=== PATIENT | female | born 1980 | race Caucasian/White ===

== ENCOUNTER 2020-10-03 12:36 | Emergency (ER) | payer BC, SELFPAY ==
[2020-10-03 12:53] VITALS: BP 132/95; PULSE 75; RESP 17; TEMP 36.6; O2SAT 96; BMI 46.5
--- NOTE | 2020-10-03 13:21 | ED_ITS ---
HPI - Nausea/Vomiting/Diarrhea General Chief complaint: Nausea/Vomiting/Diarrhea Stated complaint: difficulty breathing/ throwing up Time Seen by Provider: 10/03/20 13:12 Source: patient Mode of arrival: ambulatory Limitations: no limitations History of Present Illness HPI Narrative: 40-year-old female with a past medical history of anxiety, IBS, diverticulitis, GERD, marijuana use here with complaints of nausea and vomiting since last night unable to tolerate p.o. fluids. She does have some upper abdominal pain which she tells me is secondary to vomiting. No fevers, chills, urinary symptoms, diarrhea or constipation. Last menstrual cycle 5 days ago. She does smoke marijuana. Hot showers help her. Associated nausea: Yes Related Data Previous Rx's Medication Instructions Recorded fluticasone propionate 50 1 spray INTRANASAL DAILY #16 g 09/03/20 mcg/actuation nasal spray,suspension ondansetron 4 mg PO Q6H PRN #10 tab 10/03/20 Allergies Allergy/AdvReac Type Severity Reaction Status Date / Time haloperidol [HALOPERIDOL] Allergy Unknown INVOLUNTARY Unverified 12/14/19 14:41 SPASMS penicillin V Allergy Unknown Verified 10/03/19 00:00 Penicillins [PENICILLINS] Allergy Unknown HIVES Unverified 12/14/19 14:41 SEASONAL ALLERGIES Allergy Unknown RUNNY Uncoded 12/14/19 14:41 NOSE, ITCHY EYES, SNEEZING Review of Systems Review of Systems: Yes all other systems are reviewed and are negative Constitutional: Constitutional: Reports no additional constitutional complaints, Denies body ache(s), Denies chills, Denies fever(s), Denies headache(s) and Denies weakness Eyes: Eyes: Reports no additional eye complaints and Denies change in vision ENT: Reports system reviewed and no additional complaints, except as documented, Denies dizziness, Denies headache(s), Denies nasal congestion, Denies nasal discharge and Denies neck pain Cardiovascular: Cardiovascular: Reports no additional cardiovascular complaints, Denies chest pain, Denies leg edema and Denies dyspnea Respiratory: Respiratory: Reports no additional respiratory complaints, Denies cough and Denies dyspnea Gastrointestinal: Gastrointestinal: Reports no additional gastrointestinal complaints, Reports abdominal pain, Denies diarrhea, Reports nausea and Reports vomiting Genitourinary: Genitourinary: Reports no additional female genitourinary complaints and Denies urinary incontinence Musculoskeletal: Musculoskeletal: Reports no additional musculoskeletal complaints, Denies back pain, Denies arthralgias, Denies joint swelling, Denies neck pain, Denies numbness and Denies tingling Integumentary/Breasts: Skin/Breast: Reports system reviewed and no additional complaints, except as docu and Denies rash Neurologic: Reports system reviewed and no additional complaints, except as documented, Denies Abnormal speech present, Denies dizziness, Denies headache(s), Denies numbness, Denies tingling and Denies weakness PMFSH Past Medical History Attestation statement: The following information was validated with the patient. Source: old records reviewed and nursing notes reviewed Medical History Diverticulitis IBS (irritable bowel syndrome) Social History Social History Alcohol intake: unknown Smoked in Last 30 Days: Yes Use of substances other than those prescribed or required for medical reasons: Unknown Advance Directives: No Advance Directives Information Provided: No Patient : No Physical Exam Vital Signs: Vital Signs: Last Vital Signs Temp 98.7 F 10/03/20 16:14 Pulse 60 10/03/20 16:14 Resp 14 10/03/20 16:14 BP 126/76 10/03/20 16:14 Pulse Ox 99 10/03/20 16:14 Body Mass Index 46.5 Const: General: anxious Orientation/consciousness: patient oriented x3 Limitations: no limitations HENMT: Head: Yes normal to inspection Ears: hearing grossly normal bilaterally General nose exam: Normal external nose present Face and sinus: Yes normal facial exam Mouth: Normal oral and palatal mucosa present Throat: Yes posterior oropharynx normal Eyes: General: appearance normal, both eyes and all related structures Pupils: Equal, round and reactive pupils present Neck: Neck: Yes normal visual inspection Chest: Chest palpation & inspection: normal inspection of the chest Resp: Effort & Inspection: normal respiratory effort Auscultation: clear to auscultation bilaterally Cardio: Rate: regular rate Rhythm: regular rhythm Peripheral pulses: Peripheral pulses 2+ throughout GI: Other: Dry heaving in the room. No emesis noted. Very anxious Inspection: Yes normal to inspection Palpation (GI): Soft to palpation and nontender Auscultation: normal bowel sounds Back/Spine/Pelvis: Thoracic/Lumbar Spine: thoracic and lumbar spine normal to inspection Skin: General skin exam: no rashes or lesions noted Neuro: General: patient oriented x3, no focal motor deficits and normal sensation to monofilament Cranial nerves: Yes Equal, round and reactive pupils present Cognition (Neuro): normal cognition Speech: No Abnormal speech present Gait exam (Neuro): Normal gait present Motor exam (neuro): 5/5 motor strength present throughout Extrem: General: Yes normal to inspection, Yes no pedal edema and Yes no calf tenderness Course Course Course Narrative: 40-year-old female here with nausea and vomiting with upper abdominal pain since yesterday. Unable to tolerate p.o. fluids at home. Has tried taking some hot showers but continued symptoms. On arrival the patient is very anxious, dry heaving in the room. No emesis noted. No focal abdominal pain on exam. Will check labs, UA, urine . Will place PIV and give antiemetic. 1745- Labs and urine unremarkable. Patient is now tolerating p.o.. She is fee ling improved. Will discharge home with antiemetic. We discussed discontinuing marijuana. Reviewed worrisome signs and symptoms when to return to the emergency department. Comfortable discharge home. MDM - Nausea/Vomiting/Diarrhea MDM Narrative Medical decision making narrative: Cyclic vomiting, gastritis, gastroenteritis Differential Diagnosis Differential diagnosis: Likely gastroenteritis Medical Records Attestation: I reviewed the patient's medical records. Lab Data Attestation: I reviewed the patient's lab results. Result diagrams: 10/03/20 13:43 10/03/20 13:43 Labs: Lab Results 10/03/20 10/03/20 10/03/20 Range/Units 13:43 13:43 17:36 WBC 10.4 (4.8-10.8) X10*3/uL RBC 4.48 (4.20-5.50) X10*6/uL Hgb 13.0 (12.0-16.0) g/dl Hct 38.0 (37-47) % MCV 84.8 (80-98) fL MCH 29.0 (27.0-33.0) pg MCHC 34.2 (31.0-35.0) g/dl RDW 12.2 (11.0-16.0) % Plt Count 297 (160-400) X10*3/uL MPV 8.4 L (9.4-12.3) fL Immature Gran % (Auto) 0.3 (0.0-0.4) % Neut % (Auto) 86.0 H (45-73) % Lymph % (Auto) 9.8 L (20-40) % [place] % (Auto) 3.8 (2-11) % Eos % (Auto) 0.0 (0-4) % Baso % (Auto) 0.1 (0-2) % Lymph # (Auto) 1.0 L (1.2-4.9) X10*3/uL [place] # (Auto) 0.4 (0.1-1.2) X10*3/uL Eos # (Auto) 0.0 (0.0-0.4) X10*3/uL Baso # (Auto) 0.0 (0.0-0.2) X10*3/uL Abs Immat Gran (auto) 0.03 (0.00-0.03) X10*3/uL Absolute Neuts (auto) 9.0 H (2.0-8.3) X10*3/uL Absolute Nucleated RBC 0.000 (0.0-0.012) X10*3/uL Nucleated RBC % (auto) 0.0 (0.0-0.2) /100WBC Sodium 141 (135-145) mmol/L Potassium 4.0 (3.3-5.1) mmol/L Chloride 107 (96-108) mmol/L Carbon Dioxide 19 L (22-29) mmol/L Anion Gap 19 (12-20) BUN 9 (9-16) mg/dL Creatinine 0.84 (0.5-1.4) mg/dL Estim Creat Clear Calc 120.6 Estimated GFR > 60 Random Glucose 147 H (60-115) mg/dL Calcium 10.0 (8.4-10.2) mg/dL Total Bilirubin 0.5 (0.0-1.0) mg/dL Direct Bilirubin 0.2 (0.0-0.5) mg/dL AST 20 (5-31) U/L ALT 24 (0-31) U/L Alkaline Phosphatase 63 (39-117) U/L Total Protein 7.3 (6.5-8.0) g/dL Albumin 4.4 (3.5-5.0) g/dL Urine Color YELLOW Urine Appearance CLEAR Urine pH 8.0 (5.0-8.0) Ur Specific [place] 1.025 (1.005-1.025) Urine Protein NEG (NEG-TRACE) MG/DL Urine Glucose (UA) NEG (NEG) MG/DL Urine Ketones >=80 (NEG) MG/DL Urine Blood TRACE (NEG) Urine Nitrite NEG (NEG) Ur Leukocyte Esterase NEG (NEG) Urine Test (NEGATIVE) 10/03/20 Range/Units 17:36 WBC (4.8-10.8) X10*3/uL RBC (4.20-5.50) X10*6/uL Hgb (12.0-16.0) g/dl Hct (37-47) % MCV (80-98) fL MCH (27.0-33.0) pg MCHC (31.0-35.0) g/dl RDW (11.0-16.0) % Plt Count (160-400) X10*3/uL MPV (9.4-12.3) fL Immature Gran % (Auto) (0.0-0.4) % Neut % (Auto) (45-73) % Lymph % (Auto) (20-40) % [place] % (Auto) (2-11) % Eos % (Auto) (0-4) % Baso % (Auto) (0-2) % Lymph # (Auto) (1.2-4.9) X10*3/uL [place] # (Auto) (0.1-1.2) X10*3/uL Eos # (Auto) (0.0-0.4) X10*3/uL Baso # (Auto) (0.0-0.2) X10*3/uL Abs Immat Gran (auto) (0.00-0.03) X10*3/uL Absolute Neuts (auto) (2.0-8.3) X10*3/uL Absolute Nucleated RBC (0.0-0.012) X10*3/uL Nucleated RBC % (auto) (0.0-0.2) /100WBC Sodium (135-145) mmol/L Potassium (3.3-5.1) mmol/L Chloride (96-108) mmol/L Carbon Dioxide (22-29) mmol/L Anion Gap (12-20) BUN (9-16) mg/dL Creatinine (0.5-1.4) mg/dL Estim Creat Clear Calc Estimated GFR Random Glucose (60-115) mg/dL Calcium (8.4-10.2) mg/dL Total Bilirubin (0.0-1.0) mg/dL Direct Bilirubin (0.0-0.5) mg/dL AST (5-31) U/L ALT (0-31) U/L Alkaline Phosphatase (39-117) U/L Total Protein (6.5-8.0) g/dL Albumin (3.5-5.0) g/dL Urine Color Urine Appearance Urine pH (5.0-8.0) Ur Specific [place] (1.005-1.025) Urine Protein (NEG-TRACE) MG/DL Urine Glucose (UA) (NEG) MG/DL Urine Ketones (NEG) MG/DL Urine Blood (NEG) Urine Nitrite (NEG) Ur Leukocyte Esterase (NEG) Urine Test NEGATIVE (NEGATIVE) Discharge Plan Discharge Clinical Impression: Vomiting Patient Disposition: Home, Self-Care Instructions: Acute Nausea and Vomiting (ED) Prescriptions: New ondansetron 4 mg tablet,disintegrating 4 mg PO Q6H PRN (Reason: nausea and vomiting) Qty: 10 RF: 0 No Action fluticasone propionate [Flonase Allergy Relief] 50 mcg/actuation spray,suspension 1 spray intranasal DAILY Qty: 16 RF: 6 Referrals: Tracy Nevarez MD [Primary Care Provider] - 2 days Stand Alone Forms: Work/School Release
[2020-10-03] MEDS: Metoclopramide HCl 10 MG/2 ML VIAL IVPUSH (13:37)
[2020-10-03] MEDS: diphenhydrAMINE HCL 50 MG/ML VIAL 25 MG IVPUSH (13:40)
[2020-10-03] MEDS: 0.9 % Sodium Chloride 1,000 ML 999 ML IV (13:40)
[2020-10-03] MEDS: LORazepam 2 MG/ML VIAL 1 MG IVPUSH (13:41)
[2020-10-03 13:46] LABS: MANUAL DIFF FLAG NO
[2020-10-03 13:51] LABS: Basophils Percent Auto 0.1 % (0-2); Imm Gran Abs Auto 0.03 X10*3/uL (0.00-0.03); Imm Gran Pct Auto 0.3 % (0.0-0.4); Lymphocytes Percent Auto 9.8 % (20-40); Mean Corpuscular HGB Conc 34.2 g/dl (31.0-35.0); Mean Corpuscular Volume 84.8 fL (80-98); Mean Platelet Volume 8.4 fL (9.4-12.3); Monocytes Absolute Auto 0.4 X10*3/uL (0.1-1.2); Monocytes Percent Auto 3.8 % (2-11); Platelet Count 297 X10*3/uL (160-400); Red Blood Count 4.48 X10*6/uL (4.20-5.50); Red Cell Distribution Width 12.2 % (11.0-16.0); White Blood Count 10.4 X10*3/uL (4.8-10.8)
--- NOTE | 2020-10-03 14:21 | PC.NURSE ---
pt is currently asleep, respirations even and unlabored.
[2020-10-03 14:22] LABS: Alanine Aminotransferase 24 U/L (0-31); Albumin Level 4.4 g/dL (3.5-5.0); Alkaline Phosphatase 63 U/L (39-117); Anion Gap 19 (12-20); Aspartate Amino Transferase 20 U/L (5-31); Bilirubin Direct 0.2 mg/dL (0.0-0.5); Bilirubin Total 0.5 mg/dL (0.0-1.0); Blood Urea Nitrogen 9 mg/dL (9-16); Carbon Dioxide 19 mmol/L (22-29); Chloride 107 mmol/L (96-108); Creatinine Clr Calc Pharmacy 120.6; Estimated Glomerular Filt Rate > 60; Glucose Random 147 mg/dL (60-115); Sodium 141 mmol/L (135-145); Total Protein 7.3 g/dL (6.5-8.0)
[2020-10-03 16:00] VITALS: RESP 16
[2020-10-03 16:14] VITALS: BP 126/76; PULSE 60; RESP 14; TEMP 37.1; O2SAT 99
[2020-10-03 17:43] LABS: Glucose Urine UA NEG (NEG); Leukocyte Esterase Urine NEG (NEG); Nitrite Urine NEG (NEG); Specific Gravity - Urine 1.025 (1.005-1.025); Urine Blood TRACE (NEG); Urine Ketones >=80 MG/DL (NEG); Urine Protein NEG (NEG-TRACE)
[2020-10-03 17:45] LABS: Appearance Urine CLEAR; Color Urine YELLOW
[2020-10-03 17:46] LABS: UPreg QC Valid YES; Urine Pregnancy NEGATIVE (NEGATIVE)
[2020-10-03 17:57] LABS: Bacteria Urine TRACE /LPF; Mucus Urine 1+ /LPF; Squamous Epithelial Cell Urine TRACE /LPF; WBC Urine 0-2 /HPF (0-4)
[2020-10-03 18:07] LABS: Amphetamine Screen Urine Not Detected (Not Detect); Barbiturates, Urine Not Detected (Not Detect); Benzodiazepines Screen Urine Not Detected (Not Detect); Cannabinoid Screen Urine POSITIVE (Not Detect); Cocaine Screen Urine Not Detected (Not Detect); Opiate Screen Urine Not Detected (Not Detect); Phencyclidine Screen Urine Not Detected (Not Detect)
== END 2020-10-03 17:57 | disposition home or self-care (01) ==
PROVIDERS: Nurse Practitioner Family; Emergency Provider Emergency Medicine; PCP Internal Medicine
DX: R11.10 Vomiting, unspecified (principal); F12.90 Cannabis use, unspecified, uncomplicated
CPT/HCPCS: 36415; 80048; 80076; 80307; 81001; 81025; 85025; 96361; 96374; 96375; 99284; J1200; J2060; J2765

== ENCOUNTER 2020-10-04 18:12 | Emergency (ER) | payer BC, SELFPAY ==
[2020-10-04 18:26] VITALS: BP 153/81; PULSE 62; RESP 16; TEMP 36.9; O2SAT 95; BMI 46.5
--- NOTE | 2020-10-04 22:34 | ED.NAVMDI ---
HPI - Nausea/Vomiting/Diarrhea General Chief complaint: Nausea/Vomiting/Diarrhea Stated complaint: Tingling all over body, sick for a couple days Time Seen by Provider: 10/04/20 22:33 Source: patient Mode of arrival: ambulatory Limitations: no limitations History of Present Illness HPI Narrative: Patient history of anxiety smokes marijuana used to take Ativan for years which stopped by her PCP few months ago since then patient has been having anxiety attack with nausea vomiting abdominal pain was seen here on 10/02 and 10/03 for similar complaints comes back again for nausea vomiting crease anxiety and diffuse abdominal pain feels very anxious no fever chills no urinary complaints patient workup was negative yesterday Related Data Previous Rx's Medication Instructions Recorded fluticasone propionate 50 1 spray INTRANASAL DAILY #16 g 09/03/20 mcg/actuation nasal spray,suspension ondansetron 4 mg PO Q6H PRN #10 tab 10/03/20 dicyclomine 20 mg PO TID PRN #20 tab 10/05/20 lorazepam [Ativan] 1 mg PO BID PRN #20 tab 10/05/20 Allergies Allergy/AdvReac Type Severity Reaction Status Date / Time haloperidol [HALOPERIDOL] Allergy Unknown INVOLUNTARY Verified 10/04/20 18:32 SPASMS penicillin V Allergy Unknown Shakiness Verified 10/04/20 18:32 Penicillins [PENICILLINS] Allergy Unknown HIVES Verified 10/04/20 18:32 SEASONAL ALLERGIES Allergy Unknown RUNNY Uncoded 10/04/20 18:32 NOSE, ITCHY EYES, SNEEZING Review of Systems Review of Systems: Yes all other systems are reviewed and are negative PMFSH Past Medical History Medical History Diverticulitis IBS (irritable bowel syndrome) Social History Social History Alcohol intake: unknown Smoked in Last 30 Days: No Substance Use Type: Marijuana Substance Use Frequency: Daily Last Used Substance: Weeks (ago) Any prior treatment program specific to substance use: No Advance Directives: No Patient : No Physical Exam Vital Signs: Vital Signs: Last Vital Signs Temp 98.5 F 10/04/20 18:26 Pulse 50 10/04/20 23:41 Resp 16 10/04/20 23:41 BP 126/70 10/04/20 23:41 Pulse Ox 99 10/04/20 23:41 Body Mass Index 46.5 Appearance: Alert. Oriented X3. No acute distress. Anxious Eyes: PERRLA, ENT: Pharynx normal. Oral Mucosa moist Neck: Normal inspection. Neck supple. CVS: Normal heart rate and rhythm. Pulses normal. Respiratory: No respiratory distress. Equal air entry bilateral, no wheezing/rales/rhonchi Abdomen: Soft and diffuse abdominal tenderness no rebound tenderness or guarding Bowel sounds are present, no mass palpable, no CVA tenderness Skin: Skin warm and dry. Normal skin color. Normal skin turgor. Extremities: No lower extremity edema. No calf tenderness Neuro: Oriented X 3. No motor deficit. MDM - Nausea/Vomiting/Diarrhea MDM Narrative Medical decision making narrative: Patient anxiety and cannabis use likely the cause of vomiting and pain discharge patient on dicyclomine and some Ativan advised to follow-up with PCP for Medical Records Attestation: I reviewed the patient's medical records. Discharge Plan Discharge Clinical Impression: Anxiety, Cyclic vomiting syndrome Patient Disposition: Home, Self-Care Instructions: Anxiety (ED), Cyclic Vomiting Syndrome (ED) Additional Instructions: Rest at home take medication for anxiety Follow-up with your primary doctor, stop smoking marijuana Prescriptions: New lorazepam [Ativan] 1 mg tablet 1 mg PO BID PRN (Reason: anxiety) Qty: 20 RF: 0 dicyclomine 20 mg tablet 20 mg PO TID PRN (Reason: abdominal discomfort) Qty: 20 RF: 0 No Action fluticasone propionate [Flonase Allergy Relief] 50 mcg/actuation spray,suspension 1 spray intranasal DAILY Qty: 16 RF: 6 ondansetron 4 mg tablet,disintegrating 4 mg PO Q6H PRN (Reason: nausea and vomiting) Qty: 10 RF: 0
[2020-10-04 22:40] VITALS: BP 136/71; PULSE 56; RESP 20; O2SAT 100
[2020-10-04] MEDS: LORazepam 2 MG/ML VIAL IM (22:45)
[2020-10-04 23:41] VITALS: BP 126/70; PULSE 50; RESP 16; O2SAT 99
[2020-10-05] MEDS: Dicyclomine HCl 10 MG CAPSULE 20 MG PO (00:04)
== END 2020-10-05 00:09 | disposition home or self-care (01) ==
PROVIDERS: Emergency Provider Internal Medicine; PCP Internal Medicine
DX: R11.15 Cyclical vomiting syndrome unrelated to migraine (principal); F41.9 Anxiety disorder, unspecified
CPT/HCPCS: 96372; 99284; J2060

== ENCOUNTER 2020-11-28 11:24 | Outpatient (REF) | payer BC, SELFPAY ==
[2020-11-28 13:57] LABS: Hematocrit 38.1 % (37-47); Hemoglobin 12.5 g/dl (12.0-16.0); Mean Corpuscular HGB Conc 32.8 g/dl (31.0-35.0); Mean Corpuscular Hemoglobin 28.6 pg (27.0-33.0); Mean Corpuscular Volume 87.2 fL (80-98); Mean Platelet Volume 8.9 fL (9.4-12.3); Platelet Count 308 X10*3/uL (160-400); Red Blood Count 4.37 X10*6/uL (4.20-5.50); Red Cell Distribution Width 12.7 % (11.0-16.0); White Blood Count 6.7 X10*3/uL (4.8-10.8)
[2020-11-28 14:21] LABS: Alanine Aminotransferase 14 U/L (0-31); Albumin Level 3.9 g/dL (3.5-5.0); Alkaline Phosphatase 50 U/L (39-117); Anion Gap 11 (12-20); Aspartate Amino Transferase 14 U/L (5-31); Bilirubin Total 0.4 mg/dL (0.0-1.0); Blood Urea Nitrogen 9 mg/dL (9-16); Calcium 9.1 mg/dL (8.4-10.2); Carbon Dioxide 27 mmol/L (22-29); Chloride 106 mmol/L (96-108); Cholesterol 126 mg/dL; Estimated Glomerular Filt Rate > 60; Glucose Fasting 92 mg/dL (60-99); HDL Cholesterol 35 mg/dL; LDL Cholesterol Calculated 71 mg/dl; Potassium 4.2 mmol/L (3.3-5.1); Sodium 140 mmol/L (135-145); Total Protein 6.2 g/dL (6.5-8.0); Triglycerides 102 mg/dL
[2020-11-28 14:34] LABS: TSH reflex Free T4 1.89 uIU/mL (0.32-4.0)
== END 2020-11-28 11:25 | disposition home or self-care (01) ==
LOC: HO.HMGCLDS 11:24
PROVIDERS: PCP Internal Medicine; Visit Provider Internal Medicine
DX: Z00.00 Encounter for general adult medical examination without abnormal findings (principal); F41.9 Anxiety disorder, unspecified
CPT/HCPCS: 36415; 80053; 80061; 84443; 85027

== ENCOUNTER 2020-12-11 17:00 | Outpatient (RCR) | payer BC, SELFPAY ==
--- NOTE | 2020-11-14 17:56 | MHC.PT.EP ---
[facility] [place] Office [place] Office [place] Office [address] [place] [address] [phone] F: [phone] F: [phone] F: [phone] F: [phone] Physical Therapy Plan of Care Date of Evaluation: Date of Surgery: N/A Diagnosis: low back pain Assessment: pt presents to physical therapy with pain, decreased range of motion, decreased strength, impaired functional mobility, impaired postural awareness, and gait deviations. pt is a good candidate for skilled PT due to age, potential remediation of impairments, typical disease/condition progression and prognosis, comorbidities, and motivation. pt would benefit from tailored strengthening and stretching exercise program, functional training, gait training, postural re-training, neuromuscular re-education, modalities as needed for pain, equipment safety demonstration. Frequency and Duration: The patient will be seen 1x/wk for 5 wks Short Term Goals: pt will be I w/ HEP to promote self-management of condition. pt will improve B hip ABD strength by 1 MMT grade to remediate gait impairments on even ground. pt will be I w/ sit<>supine transfer using log roll technique. Snf Goals: pt will report a statistically significant improvement in self-reported outcome measure, [place], to promote return to PLOF. pt will report <4/10 low back pain w/ sit<>supine transfers. 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 Treatment Plan: Modalities to reduce pain, spasms and effusion. Manual therapy to restore motion and function. Therapeutic exercise to improve strength and flexibility. Neuromuscular re-education for posture and balance. Therapeutic activities to return to functional activities of daily living. Electronically signed by: Kamala Brown PT, DPT Please sign and return to therapist. Thank you for your referral.
--- NOTE | 2021-01-03 12:23 | MHC.PT.DC ---
[facility] [place] Office [place] Office [place] Office [address] [place] [address] [phone] F: [phone] F: [phone] F: [phone] F: [phone] Physical Therapy Discharge Report Diagnosis: low back pain Date of Surgery: N/A Date of Evaluation: 11/14/20 Date of Discharge: 01/03/21 Treatments to Date: 5 Cancellations to Date: 0 No Shows to Date: 0 Discharge Status: Improved Function Independent with HEP Discharge Summary: The patient would like today to be her last visit as she feels her back and hip pain are managed with the exercises thus far. I will keep her chart open to 2-3 weeks and if I do not hear from her I will D/C the chart at that time. Today her HEP was reviewed and she feels confident she will be able to continue them going forward. She is able to perform therapeutic exercise with no verbal cueing for mechanics. To progress her exercises she was advised to increase the hold time. Electronically signed by: Kamala Brown PT, DPT Please sign and return to therapist. Thank you for your referral.
== END 2021-01-03 12:23 | disposition home or self-care (01) ==
LOC: HO.PT 17:00
PROVIDERS: PCP Internal Medicine; Visit Provider Internal Medicine
DX: M54.5 Low back pain (principal)
CPT/HCPCS: 97110; 97161

== ENCOUNTER 2021-03-20 09:20 | Outpatient (REF) | payer BC, SELFPAY ==
--- NOTE | ~2021-03-20 | US_ITS ---
EXAMINATION: US ABDOMEN COMPLETE CLINICAL INFORMATION: Epigastric pain. COMPARISON: CT abdomen and pelvis 12/08/2017. Abdominal ultrasound 12/08/2017. TECHNIQUE: Real-time imaging of the abdominal viscera. FINDINGS: PANCREAS: Normal head and body. The tail is obscured by bowel gas. ABDOMINAL AORTA: The proximal, mid, and distal segments are normal in caliber. INFERIOR VENA CAVA: Visualized portions are normal. LIVER: The liver is normal in size. The liver contour is normal. There is diffuse increased liver parenchymal echogenicity, consistent with hepatic steatosis. No focal hepatic lesion. There is no intrahepatic biliary duct dilatation seen. GALLBLADDER: Normal. The gallbladder is physiologically distended without evidence of stones, sludge, polyps, wall thickening or pericholecystic fluid. COMMON BILE DUCT: Normal in caliber measuring 0.34 cm in diameter. RIGHT KIDNEY: Normal. No hydronephrosis. No renal calculi or focal parenchymal lesions. The kidney measures 11.3 cm in maximum dimension. LEFT KIDNEY: Normal. No hydronephrosis. No renal calculi or focal parenchymal lesions. The kidney measures 10.9 cm in maximum dimension. SPLEEN: Normal. The spleen measures 10.7 cm in maximum dimension. FREE FLUID: None. US/US abdomen complete IMPRESSION: Increased echogenicity of the hepatic parenchyma, most commonly due to hepatic steatosis. No focal lesion. No intrahepatic biliary ductal dilatation. Otherwise normal abdominal ultrasound.
[2021-03-20 09:20] LABS: MANUAL DIFF FLAG NO
[2021-03-20 10:03] LABS: Basophils Percent Auto 0.3 % (0-2); Eosinophils Absolute Auto 0.2 X10*3/uL (0.0-0.4); Hematocrit 37.6 % (37.0-47.0); Hemoglobin 12.5 g/dl (12.0-16.0); Imm Gran Abs Auto 0.02 X10*3/uL (0.00-0.03); Imm Gran Pct Auto 0.3 % (0.0-0.4); Lymphocytes Absolute Auto 2.2 X10*3/uL (1.2-4.9); Lymphocytes Percent Auto 29.5 % (20-40); Mean Corpuscular HGB Conc 33.2 g/dl (31.0-35.0); Mean Corpuscular Hemoglobin 29.4 pg (27.0-33.0); Mean Corpuscular Volume 88.5 fL (80.0-98.0); Mean Platelet Volume 8.6 fL (9.4-12.3); Monocytes Absolute Auto 0.6 X10*3/uL (0.1-1.2); Monocytes Percent Auto 8.4 % (2-11); Neutrophils Absolute Auto 4.5 x10*3/uL (2.0-8.3); Neutrophils Percent Auto 59.5 % (45-73); Platelet Count 294 X10*3/uL (160-400); Red Blood Count 4.25 X10*6/uL (4.20-5.50); Red Cell Distribution Width 12.4 % (11.0-16.0); White Blood Count 7.5 X10*3/uL (4.8-10.8)
[2021-03-20 10:31] LABS: Alanine Aminotransferase 15 U/L (0-31); Alkaline Phosphatase 62 U/L (39-117); Amylase 32 U/L (28-100); Aspartate Amino Transferase 16 U/L (5-31); Bilirubin Direct < 0.2 mg/dL (0.0-0.5); Bilirubin Total 0.4 mg/dL (0.0-1.0); Total Protein 6.9 g/dL (6.5-8.0)
== END 2021-03-20 09:21 | disposition home or self-care (01) ==
LOC: HO.US 09:20
PROVIDERS: PCP Internal Medicine; Visit Provider Internal Medicine Gastroenterology
DX: R10.13 Epigastric pain (principal)
CPT/HCPCS: 36415; 76700; 80076; 82150; 85025

== ENCOUNTER 2021-08-04 07:00 | Outpatient (RCR) | payer BC, SELFPAY | END 2021-08-04 07:59 | disposition home or self-care (01) | LOC: HO.PT 07:00 | PROVIDERS: PCP Internal Medicine; Visit Provider Obstetrics & Gynecology | DX: N81.9 Female genital prolapse, unspecified (principal) | CPT/HCPCS: 97110; 97112; 97140; 97162; 97530 ==

== ENCOUNTER 2022-01-23 11:33 | Outpatient (REF) | payer BC, SELFPAY ==
[2022-01-23 13:53] LABS: MANUAL DIFF FLAG NO
[2022-01-23 14:02] LABS: Basophils Percent Auto 0.3 % (0-2); Eosinophils Absolute Auto 0.1 X10*3/uL (0.0-0.4); Eosinophils Percent Auto 1.3 % (0-4); Hematocrit 39.5 % (37.0-47.0); Imm Gran Abs Auto 0.04 X10*3/uL (0.00-0.03); Imm Gran Pct Auto 0.5 % (0.0-0.4); Lymphocytes Absolute Auto 2.3 X10*3/uL (1.2-4.9); Lymphocytes Percent Auto 28.6 % (20-40); Mean Corpuscular HGB Conc 32.9 g/dl (31.0-35.0); Mean Corpuscular Hemoglobin 29.1 pg (27.0-33.0); Mean Corpuscular Volume 88.6 fL (80.0-98.0); Mean Platelet Volume 8.6 fL (9.4-12.3); Monocytes Absolute Auto 0.5 X10*3/uL (0.1-1.2); Monocytes Percent Auto 6.6 % (2-11); Neutrophils Percent Auto 62.7 % (45-73); Platelet Count 264 X10*3/uL (160-400); Red Blood Count 4.46 X10*6/uL (4.20-5.50); Red Cell Distribution Width 12.2 % (11.0-16.0)
[2022-01-23 14:07] LABS: Appearance Urine Clear; Color Urine Yellow; Glucose Urine UA Negative (Negative); Leukocyte Esterase Urine Negative (Negative); Nitrite Urine Negative (Negative); Specific Gravity - Urine 1.025 (1.005-1.025); Urine Blood Negative (Negative); Urine Ketones Negative (Negative); Urine Protein Negative (Neg-Trace)
[2022-01-23 14:18] LABS: RBC Urine 0-2 /HPF (0-2); WBC Urine 0-5 /HPF (0-5)
[2022-01-23 14:19] LABS: Bacteria Urine Trace (None Seen); Hyaline Casts Urine 0-2 /LPF (0-2)
[2022-01-23 14:23] LABS: Alanine Aminotransferase 14 U/L (0-31); Albumin Level 4.5 g/dL (3.5-5.0); Alkaline Phosphatase 62 U/L (39-117); Anion Gap 14 (12-20); Aspartate Amino Transferase 17 U/L (5-31); Bilirubin Total 0.4 mg/dL (0.0-1.0); Blood Urea Nitrogen 12 mg/dL (9-16); Calcium 9.6 mg/dL (8.4-10.2); Carbon Dioxide 27 mmol/L (22-29); Chloride 103 mmol/L (96-108); Cholesterol 160 mg/dL; Estimated Glomerular Filt Rate > 60; Glucose Fasting 98 mg/dL (60-99); HDL Cholesterol 49 mg/dL; Iron 66 mcg/dL (30-160); LDL Cholesterol Calculated 98 mg/dl; Percent Iron Saturation 19 % (15-50); Potassium 4.3 mmol/L (3.3-5.1); Sodium 140 mmol/L (135-145); Total Iron Binding Capacity 348 mcg/dL (228-428); Total Protein 7.2 g/dL (6.5-8.0); Triglycerides 67 mg/dL; Unsaturated Iron Binding 282 ug/dL
[2022-01-23 14:45] LABS: TSH reflex Free T4 1.71 uIU/mL (0.32-4.0)
== END 2022-01-23 11:34 | disposition home or self-care (01) ==
LOC: HO.HMGCLDS 11:33
PROVIDERS: PCP Internal Medicine; Visit Provider Internal Medicine
DX: Z00.00 Encounter for general adult medical examination without abnormal findings (principal)
CPT/HCPCS: 36415; 80053; 80061; 81001; 83540; 84443; 85025

== ENCOUNTER → 2022-02-12 12:51 | Outpatient (REF) | payer BC, SELFPAY | LOC: HO.SL 12:51 | PROVIDERS: PCP Internal Medicine; Visit Provider Internal Medicine | DX: G47.30 Sleep apnea, unspecified (principal) | CPT/HCPCS: 95806 ==

== ENCOUNTER 2022-03-09 12:26 | Emergency (ER) | payer BC, SELFPAY ==
--- NOTE | 2022-03-09 12:34 | ED.GENADULT ---
HPI - General Adult General Chief complaint: General Medical <Kate Garibay NP - Last Filed: 03/09/22 12:38> Stated complaint: kidney pain, inflamated? <Kate Garibay NP - Last Filed: 03/09/22 12:38> Time Seen by Provider: 03/09/22 14:04 <Kate Garibay NP - Last Filed: 03/09/22 12:38> Source: patient <JOHNY Mccarty - Last Filed: 03/09/22 15:21> Mode of arrival: ambulatory <JOHNY Mccarty - Last Filed: 03/09/22 15:21> Limitations: no limitations <JOHNY Mccarty - Last Filed: 03/09/22 15:21> History of Present Illness HPI narrative: Patient is a 41 year old assigned female at with a history of IBS and sleep apnea presenting to the emergency department today with right flank pain. Patient states that over the last few hours she began to have right sided flank pain. Patient denies any dizziness, lightheadedness, abdominal pain, nausea, vomiting, fever, chills, blurry vision, double vision, loss of vision, chest pain, difficulty breathing, shortness of breath, back pain, night sweats, pain with urination, increased urinary frequency, increased urinary urgency, blood in her urine or stool, syncope or a near syncopal episode, recent trauma or falls, bowel incontinence, bladder incontinence, bowel retention, bladder retention, or any other complaints at this time. <JOHNY Mccarty - Last Filed: 03/09/22 15:21> Onset (ago): hour(s) <JOHNY Mccarty - Last Filed: 03/09/22 15:21> Location: right (flank) <JOHNY Mccarty - Last Filed: 03/09/22 15:21> Severity: mild <JOHNY Mccarty - Last Filed: 03/09/22 15:21> Severity scale (1-10): 3 <JOHNY Mccarty - Last Filed: 03/09/22 15:21> Relieving factors: none <JOHNY Mccarty Last Filed: 03/09/22 15:21> Exacerbating factors: none <JOHNY Mccarty - Last Filed: 03/09/22 15:21> Associated symptoms: denies other symptoms <JOHNY Mccarty - Last Filed: 03/09/22 15:21> Treatments prior to arrival: none <JOHNY Mccarty - Last Filed: 03/09/22 15:21> Related Data Home medications: Home Medications Medication Instructions Recorded Confirmed L.acid,gasseri,plant,rham-B.animalis-cran cap PO 10/09/20 01/23/22 5 billion cell-250mg capsule (up4 Probiotics Women's) multivitamin 1 tab PO DAILY 10/09/20 01/23/22 Previous Rx's Medication Instructions Recorded fluticasone propionate 50 1 spray intranasal DAILY #16 grams 09/03/20 mcg/actuation nasal spray,suspension (Flonase Allergy Relief) ondansetron 4 mg disintegrating 4 mg PO Q6H PRN nausea and 10/03/20 tablet vomiting #10 tabs dicyclomine 20 mg tablet 20 mg PO TID PRN abdominal 10/05/20 discomfort #20 tabs escitalopram oxalate 20 mg tablet 20 mg PO DAILY #90 tabs 12/10/21 buspirone 5 mg tablet 5 mg PO BID #180 tabs 01/13/22 CPAP (CPAP Machine/Device) #1 ea 03/05/22 <Kate Garibay NP - Last Filed: 03/09/22 12:38> Allergies/adverse reactions: Allergies Allergy/AdvReac Type Severity Reaction Status Date / Time haloperidol [HALOPERIDOL] Allergy Unknown INVOLUNTARY Verified 03/09/22 12:34 SPASMS penicillin V Allergy Unknown Shakiness Verified 03/09/22 12:34 Penicillins [PENICILLINS] Allergy Unknown HIVES Verified 03/09/22 12:34 SEASONAL ALLERGIES Allergy Unknown RUNNY Uncoded 01/23/22 11:09 NOSE, ITCHY EYES, SNEEZING <Kate Garibay NP - Last Filed: 03/09/22 12:38> Review of Systems Constitutional: Constitutional: Reports no additional constitutional complaints, Denies chills, Denies fever(s) and Denies night sweats <JOHNY Mccarty - Last Filed: 03/09/22 15:21> Eyes: Eyes: Reports no additional eye complaints, Denies blurry vision, Denies change in vision, Denies diplopia, Denies eye discharge, Denies loss of vision and Denies eye pain <JOHNY Mccarty - Last Filed: 03/09/22 15:21> ENT: Denies dizziness <JOHNY Mccarty - Last Filed: 03/09/22 15:21> Cardiovascular: Cardiovascular: Reports no additional cardiovascular complaints, Denies chest pain, Denies lightheadedness, Denies Loss of Consciousness and Denies dyspnea <JOHNY Mccarty - Last Filed: 03/09/22 15:21> Respiratory: Respiratory: Reports no additional respiratory complaints and Denies dyspnea <JOHNY Mccarty - Last Filed: 03/09/22 15:21> Gastrointestinal: Gastrointestinal: Reports no additional gastrointestinal complaints, Denies abdominal pain, Denies melena, Denies hematochezia, Denies change in bowel habits and Denies change in stool character <JOHNY Mccarty - Last Filed: 03/09/22 15:21> Genitourinary: Genitourinary: Denies hematuria, Denies urinary frequency, Denies dysuria, Reports flank pain, Denies urinary incontinence, Denies urinary hesitancy and Denies urinary urgency <JOHNY Mccarty - Last Filed: 03/09/22 15:21> Musculoskeletal: Musculoskeletal: Reports no additional musculoskeletal complaints, Denies numbness and Denies tingling <JOHNY Mccarty - Last Filed: 03/09/22 15:21> Neurologic: Denies dizziness, Denies loss of vision, Denies numbness and Denies tingling <JOHNY Mccarty - Last Filed: 03/09/22 15:21> Psychiatric: Psychiatric: Reports no additional psychiatric complaints <JOHNY Mccarty - Last Filed: 03/09/22 15:21> Endocrine: Endocrine: Reports no additional endocrine complaints <JOHNY Mccarty - Last Filed: 03/09/22 15:21> Hematologic/Lymphatic: Hematologic/Lymphatic: Reports no additional hematologic/lymphatic complaints <JOHNY Mccarty - Last Filed: 03/09/22 15:21> Allergic/Immunologic: Allergic/Immunologic: Reports no additional allergic/immunologic complaints <JOHNY Mccarty - Last Filed: 03/09/22 15:21> [facility] Past Medical History Attestation statement: The following information was validated with the patient. <JOHNY Mccarty - Last Filed: 03/09/22 15:21> Source: old records reviewed and nursing notes reviewed <JOHNY Mccarty - Last Filed: 03/09/22 15:21> Medical History: Medical History Anxiety Chronic lower back pain Diverticulitis IBS (irritable bowel syndrome) <Kate Garibay NP - Last Filed: 03/09/22 12:38> Surgical History: Surgical History H/O colonoscopy <Kate Garibay NP - Last Filed: 03/09/22 12:38> Family History Family History: Family History Father No problems noted. Mother Hypertension Sister Mental health disorder <aKte Garibay NP - Last Filed: 03/09/22 12:38> Social History Social History: Social History Housing: House Alcohol intake: unknown Patient Tobacco Use Status: Never used Tobacco e-Cigarette/Vaping Use: Never Used Second Hand Smoke Exposure: No Substance Use Type: Marijuana Advance Directives: No Advance Directives Information Provided: Yes service: No Current occupational status: employed Cognitive needs: No Hearing needs: No Vision needs: Yes <Kate Garibay NP - Last Filed: 03/09/22 12:38> Physical Exam ED Vital Signs: Vital Signs - 24 hr 03/09/22 12:35 Temperature 98.3 F Pulse Rate 77 Respiratory Rate 18 Blood Pressure 147/98 H Pulse Oximetry 97 Oxygen Delivery Method Room Air BMI result Body Mass Index 45.7 <Kate Garibay NP - Last Filed: 03/09/22 12:38> Vital Signs - 24 hr 03/09/22 12:35 Temperature 98.3 F Pulse Rate 77 Respiratory Rate 18 Blood Pressure 147/98 H Pulse Oximetry 97 Oxygen Delivery Method Room Air BMI result Body Mass Index 45.7 <Makayla Hancock, PA - Last Filed: 03/09/22 15:21> Const General: cooperative, no acute distress, alert and awake <Makayla Ojedacarlos ID - Last Filed: 03/09/22 15:21> Nutritional Appearance: well nourished <Makayla Hancock PA - Last Filed: 03/09/22 15:21> Orientation/consciousness: patient oriented x3 <Makaylasuzi Ojedacarlos ID - Last Filed: 03/09/22 15:21> Limitations: no limitations <Makayla Ojedacarlos ID - Last Filed: 03/09/22 15:21> HENMT Head: Yes normal to inspection and Yes atraumatic <Makayla Ojedacarlos ID - Last Filed: 03/09/22 15:21> Ears: hearing grossly normal bilaterally and external ears normal <Makayla Ojedacarlos ID - Last Filed: 03/09/22 15:21> General nose exam: Normal external nose present, no nasal discharge noted and no epistaxis <Makaylasuzi Ojedacarlos ID - Last Filed: 03/09/22 15:21> Face and sinus: Yes normal facial exam, No abrasion and No laceration <Makayla Ojedacarlos ID - Last Filed: 03/09/22 15:21> Mouth: Normal oral and palatal mucosa present, no drooling and no muffled voice <Makayla Ojedacarlos ID - Last Filed: 03/09/22 15:21> Eyes General: appearance normal, both eyes and all related structures <Makaylasuzi Ojedacarlos ID - Last Filed: 03/09/22 15:21> Periorbital: periorbital findings normal <Makayal Ojedacarlos ID - Last Filed: 03/09/22 15:21> Eyelids: Yes eyelids normal <Makayla Ojedacarlos ID - Last Filed: 03/09/22 15:21> Conjunctivae: conjunctivae normal <Makayla Santi ID - Last Filed: 03/09/22 15:21> Pupils: Equal, round and reactive pupils present <Makayla Santi PA - Last Filed: 03/09/22 15:21> EOM: EOMs intact bilaterally <Makayla Hancock ID - Last Filed: 03/09/22 15:21> Neck Neck: Yes normal visual inspection, Yes full ROM and Yes no lymphadenopathy <Makayla Hancock ID - Last Filed: 03/09/22 15:21> Chest Chest palpation & inspection: normal inspection of the chest <Makayla Hancock PA - Last Filed: 03/09/22 15:21> Resp Effort & Inspection: normal respiratory effort and able to speak in complete sentences <Makayla Hancock ID - Last Filed: 03/09/22 15:21> Auscultation: clear to auscultation bilaterally <Makayla Hancock PA - Last Filed: 03/09/22 15:21> Cardio Rate: regular rate <Makayla Hancock ID - Last Filed: 03/09/22 15:21> Rhythm: regular rhythm <Makayla Hancock ID - Last Filed: 03/09/22 15:21> GI Inspection: Yes normal to inspection <Makayla Hancock ID - Last Filed: 03/09/22 15:21> Palpation (GI): Soft to palpation, not firm, nontender, no guarding and not rigid <Makayla Hancock ID - Last Filed: 03/09/22 15:21> General: Yes no CVA tenderness <Makayla Hancock PA - Last Filed: 03/09/22 15:21> Back/Spine/Pelvis Back: no CVA tenderness <Makayla Hancock PA - Last Filed: 03/09/22 15:21> Neuro General: patient oriented x3 and moves all extremities <Makayla Hancock ID - Last Filed: 03/09/22 15:21> Cranial nerves: Yes Equal, round and reactive pupils present <Makayla Hancock PA - Last Filed: 03/09/22 15:21> Cognition (Neuro): normal cognition <Makayla Hancock JOHNY - Last Filed: 03/09/22 15:21> Motor exam (neuro): 5/5 motor strength present throughout <Makayla Hancock PA - Last Filed: 03/09/22 15:21> Sensory Exam: Normal double simultaneous stimulation for sensation <Makayla Hancock PA - Last Filed: 03/09/22 15:21> Coordination: [id number] test normal <Makayla Hancock ID - Last Filed: 03/09/22 15:21> Extrem General: Yes normal to inspection, Yes full ROM and Yes capillary refill normal <JOHNY Mccarty - Last Filed: 03/09/22 15:21> Psych Appearance: grossly normal <JOHNY Mccarty - Last Filed: 03/09/22 15:21> Mental Status: mental status grossly normal <JOHNY Mccarty - Last Filed: 03/09/22 15:21> Affect: normal affect <JOHNY Mccarty - Last Filed: 03/09/22 15:21> Attitude: cooperative <JOHNY Mccarty - Last Filed: 03/09/22 15:21> Thought process: Normal thought process present <JOHNY Mccarty - Last Filed: 03/09/22 15:21> Thought content: Normal thought content present <JOHNY Mccarty - Last Filed: 03/09/22 15:21> Insight: Good insight present (Psych) <JOHNY Mccarty - Last Filed: 03/09/22 15:21> Course Course Course Narrative: This is a rapid medical exam. Deferred additional HPI, ROS and PE to primary provider. 41yo female with history of JAIR, anxiety, IBS, chronic lower back pain here with complaints of sudden onset right flank pain, no radiation of pain/urinary symptoms/fevers/chills/nausea/vomiting/diarrhea. 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 Will check labs, UA, COVID screen. VSS <Kate Garibay NP - Last Filed: 03/09/22 12:38> Medications Administered Discontinued Medications Generic Name Dose Route Start Last Admin Trade Name Freq PRN Reason Stop Dose Admin Acetaminophen 975 mg 03/09/22 12:37 03/09/22 14:16 Acetaminophen 325 Mg Tablet PO 03/09/22 12:38 975 mg ONCE ONE Administration Ketorolac Tromethamine 15 mg 03/09/22 14:57 03/09/22 15:03 Ketorolac Tromethamine 15 Mg/Ml Vial IM 03/09/22 14:58 15 mg ONCE ONE Administration <Kate Garibay NP - Last Filed: 03/09/22 12:38> Medications Administered Discontinued Medications Generic Name Dose Route Start Last Admin Trade Name Freq PRN Reason Stop Dose Admin Acetaminophen 975 mg 03/09/22 12:37 03/09/22 14:16 Acetaminophen 325 Mg Tablet PO 03/09/22 12:38 975 mg ONCE ONE Administration Ketorolac Tromethamine 15 mg 03/09/22 14:57 03/09/22 15:03 Ketorolac Tromethamine 15 Mg/Ml Vial IM 03/09/22 14:58 15 mg ONCE ONE Administration <JOHNY Mccarty - Last Filed: 03/09/22 15:21> Medical Decision Making Medical Decision Making [facility] Narrative: Patient is a 41 year old assigned female at with a history of IBS and sleep apnea presenting to the emergency department today with right flank pain. Patient's physical exam was unremarkable. Patient's blood work was unremarkable. Patient's urine showed no acute process. I explained my physical exam findings as well as all test results to the patient. I answered all questions asked by the patient. Patient received IM Toradol which she stated helped her pain significantly. I stressed the importance of the patient taking her medication as prescribed. I stressed the importance of the patient following up with her primary care provider. I stressed the importance of the patient returning to the emergency department immediately if her symptoms were to worsen or if she were to develop any dizziness, shortness of breath, difficulty breathing, chest pain, blurry vision, loss of vision, nausea, vomiting, abdominal pain, fever, chills, back pain, or any other complaints. Patient verbalized agreement and understanding with this treatment plan and discharge. <JOHNY Mccarty - Last Filed: 03/09/22 15:21> Differential Diagnosis Differential Diagnoses: The differential diagnosis associated with the presentation includes <JOHNY Mccarty - Last Filed: 03/09/22 15:21> kidney stone, flank pain <JOHNY Mccarty - Last Filed: 03/09/22 15:21> Lab Data [facility] Lab Attestation statement: I reviewed the patient's lab results. <JOHNY Mccarty - Last Filed: 03/09/22 15:21> Result Diagrams: : 03/09/22 13:14 03/09/22 13:14 <Kate Garibay NP - Last Filed: 03/09/22 12:38> Labs: Lab Results 03/09/22 03/09/22 03/09/22 Range/Units 13:14 13:14 13:14 WBC 8.5 (4.8-10.8) X10*3/uL RBC 4.38 (4.20-5.50) X10*6/uL Hgb 12.8 (12.0-16.0) g/dl Hct 37.9 (37.0-47.0) % MCV 86.5 (80.0-98.0) fL MCH 29.2 (27.0-33.0) pg MCHC 33.8 (31.0-35.0) g/dl RDW 12.0 (11.0-16.0) % Plt Count 261 (160-400) X10*3/uL MPV 8.2 L (9.4-12.3) fL Immature Gran % (Auto) 0.5 H (0.0-0.4) % Neut % (Auto) 60.2 (45-73) % Lymph % (Auto) 29.3 (20-40) % [place]s % (Auto) 7.3 (2-11) % Eos % (Auto) 2.5 (0-4) % Baso % (Auto) 0.2 (0-2) % Lymph # (Auto) 2.5 (1.2-4.9) X10*3/uL [place] # (Auto) 0.6 (0.1-1.2) X10*3/uL Eos # (Auto) 0.2 (0.0-0.4) X10*3/uL Baso # (Auto) 0.0 (0.0-0.2) X10*3/uL Abs Immat Gran (auto) 0.04 H (0.00-0.03) X10*3/uL Absolute Neuts (auto) 5.1 (2.0-8.3) x10*3/uL Absolute Nucleated RBC 0.000 (0.0-0.012) X10*3/uL Nucleated RBC % (auto) 0.0 (0.0-0.2) /100WBC Sodium 138 (135-145) mmol/L Potassium 4.0 (3.3-5.1) mmol/L Chloride 104 (96-108) mmol/L Carbon Dioxide 28 (22-29) mmol/L Anion Gap 10 L (12-20) BUN 11 (9-16) mg/dL Creatinine 0.70 (0.5-1.4) mg/dL Estim Creat Clear Calc 141.8 Estimated GFR > 60 Random Glucose 115 (60-115) mg/dL Calcium 9.4 (8.4-10.2) mg/dL Total Bilirubin 0.3 (0.0-1.0) mg/dL Direct Bilirubin < 0.2 (0.0-0.5) mg/dL AST 15 (5-31) U/L ALT 17 (0-31) U/L Alkaline Phosphatase 60 (39-117) U/L Total Protein 6.7 (6.5-8.0) g/dL Albumin 4.2 (3.5-5.0) g/dL Lipase 13 (8-78) U/L Urine Color Urine Appearance Urine pH (5.0-9.0) Ur Specific [place] (1.005-1.025) Urine Protein (Neg-Trace) mg/dL Urine Glucose (UA) (Negative) mg/dL Urine Ketones (Negative) mg/dL Urine Blood (Negative) Urine Nitrite (Negative) Ur Leukocyte Esterase (Negative) Urine Test (NEGATIVE) COVID-19 (CARMEN) Negative (Negative) COVID-19 Clin Com See Note 03/09/22 03/09/22 Range/Units 14:46 14:46 WBC (4.8-10.8) X10*3/uL RBC (4.20-5.50) X10*6/uL Hgb (12.0-16.0) g/dl Hct (37.0-47.0) % MCV (80.0-98.0) fL MCH (27.0-33.0) pg MCHC (31.0-35.0) g/dl RDW (11.0-16.0) % Plt Count (160-400) X10*3/uL MPV (9.4-12.3) fL Immature Gran % (Auto) (0.0-0.4) % Neut % (Auto) (45-73) % Lymph % (Auto) (20-40) % [place] % (Auto) (2-11) % Eos % (Auto) (0-4) % Baso % (Auto) (0-2) % Lymph # (Auto) (1.2-4.9) X10*3/uL [place] # (Auto) (0.1-1.2) X10*3/uL Eos # (Auto) (0.0-0.4) X10*3/uL Baso # (Auto) (0.0-0.2) X10*3/uL Abs Immat Gran (auto) (0.00-0.03) X10*3/uL Absolute Neuts (auto) (2.0-8.3) x10*3/uL Absolute Nucleated RBC (0.0-0.012) X10*3/uL Nucleated RBC % (auto) (0.0-0.2) /100WBC Sodium (135-145) mmol/L Potassium (3.3-5.1) mmol/L Chloride (96-108) mmol/L Carbon Dioxide (22-29) mmol/L Anion Gap (12-20) BUN (9-16) mg/dL Creatinine (0.5-1.4) mg/dL Estim Creat Clear Calc Estimated GFR Random Glucose (60-115) mg/dL Calcium (8.4-10.2) mg/dL Total Bilirubin (0.0-1.0) mg/dL Direct Bilirubin (0.0-0.5) mg/dL AST (5-31) U/L ALT (0-31) U/L Alkaline Phosphatase (39-117) U/L Total Protein (6.5-8.0) g/dL Albumin (3.5-5.0) g/dL Lipase (8-78) U/L Urine Color Yellow Urine Appearance Cloudy Urine pH 8.0 (5.0-9.0) Ur Specific [place] 1.025 (1.005-1.025) Urine Protein Negative (Neg-Trace) mg/dL Urine Glucose (UA) Negative (Negative) mg/dL Urine Ketones Negative (Negative) mg/dL Urine Blood Negative (Negative) Urine Nitrite Negative (Negative) Ur Leukocyte Esterase Negative (Negative) Urine Test NEGATIVE (NEGATIVE) COVID-19 (CARMEN) (Negative) COVID-19 Clin Com <Kate Garibay, L[employer] WATCHER - Last Filed: 03/09/22 12:38> Lab Results 03/09/22 03/09/22 03/09/22 Range/Units 13:14 13:14 13:14 WBC 8.5 (4.8-10.8) X10*3/uL RBC 4.38 (4.20-5.50) X10*6/uL Hgb 12.8 (12.0-16.0) g/dl Hct 37.9 (37.0-47.0) % MCV 86.5 (80.0-98.0) fL MCH 29.2 (27.0-33.0) pg MCHC 33.8 (31.0-35.0) g/dl RDW 12.0 (11.0-16.0) % Plt Count 261 (160-400) X10*3/uL MPV 8.2 L (9.4-12.3) fL Immature Gran % (Auto) 0.5 H (0.0-0.4) % Neut % (Auto) 60.2 (45-73) % Lymph % (Auto) 29.3 (20-40) % [place] % (Auto) 7.3 (2-11) % Eos % (Auto) 2.5 (0-4) % Baso % (Auto) 0.2 (0-2) % Lymph # (Auto) 2.5 (1.2-4.9) X10*3/uL [place] # (Auto) 0.6 (0.1-1.2) X10*3/uL Eos # (Auto) 0.2 (0.0-0.4) X10*3/uL Baso # (Auto) 0.0 (0.0-0.2) X10*3/uL Abs Immat Gran (auto) 0.04 H (0.00-0.03) X10*3/uL Absolute Neuts (auto) 5.1 (2.0-8.3) x10*3/uL Absolute Nucleated RBC 0.000 (0.0-0.012) X10*3/uL Nucleated RBC % (auto) 0.0 (0.0-0.2) /100WBC Sodium 138 (135-145) mmol/L Potassium 4.0 (3.3-5.1) mmol/L Chloride 104 (96-108) mmol/L Carbon Dioxide 28 (22-29) mmol/L Anion Gap 10 L (12-20) BUN 11 (9-16) mg/dL Creatinine 0.70 (0.5-1.4) mg/dL Estim Creat Clear Calc 141.8 Estimated GFR > 60 Random Glucose 115 (60-115) mg/dL Calcium 9.4 (8.4-10.2) mg/dL Total Bilirubin 0.3 (0.0-1.0) mg/dL Direct Bilirubin < 0.2 (0.0-0.5) mg/dL AST 15 (5-31) U/L ALT 17 (0-31) U/L Alkaline Phosphatase 60 (39-117) U/L Total Protein 6.7 (6.5-8.0) g/dL Albumin 4.2 (3.5-5.0) g/dL Lipase 13 (8-78) U/L Urine Color Urine Appearance Urine pH (5.0-9.0) Ur Specific [place] (1.005-1.025) Urine Protein (Neg-Trace) mg/dL Urine Glucose (UA) (Negative) mg/dL Urine Ketones (Negative) mg/dL Urine Blood (Negative) Urine Nitrite (Negative) Ur Leukocyte Esterase (Negative) Urine Test (NEGATIVE) COVID-19 (CARMEN) Negative (Negative) COVID-19 Clin Com See Note 03/09/22 03/09/22 Range/Units 14:46 14:46 WBC (4.8-10.8) X10*3/uL RBC (4.20-5.50) X10*6/uL Hgb (12.0-16.0) g/dl Hct (37.0-47.0) % MCV (80.0-98.0) fL MCH (27.0-33.0) pg MCHC (31.0-35.0) g/dl RDW (11.0-16.0) % Plt Count (160-400) X10*3/uL MPV (9.4-12.3) fL Immature Gran % (Auto) (0.0-0.4) % Neut % (Auto) (45-73) % Lymph % (Auto) (20-40) % [place] % (Auto) (2-11) % Eos % (Auto) (0-4) % Baso % (Auto) (0-2) % Lymph # (Auto) (1.2-4.9) X10*3/uL [place] # (Auto) (0.1-1.2) X10*3/uL Eos # (Auto) (0.0-0.4) X10*3/uL Baso # (Auto) (0.0-0.2) X10*3/uL Abs Immat Gran (auto) (0.00-0.03) X10*3/uL Absolute Neuts (auto) (2.0-8.3) x10*3/uL Absolute Nucleated RBC (0.0-0.012) X10*3/uL Nucleated RBC % (auto) (0.0-0.2) /100WBC Sodium (135-145) mmol/L Potassium (3.3-5.1) mmol/L Chloride (96-108) mmol/L Carbon Dioxide (22-29) mmol/L Anion Gap (12-20) BUN (9-16) mg/dL Creatinine (0.5-1.4) mg/dL Estim Creat Clear Calc Estimated GFR Random Glucose (60-115) mg/dL Calcium (8.4-10.2) mg/dL Total Bilirubin (0.0-1.0) mg/dL Direct Bilirubin (0.0-0.5) mg/dL AST (5-31) U/L ALT (0-31) U/L Alkaline Phosphatase (39-117) U/L Total Protein (6.5-8.0) g/dL Albumin (3.5-5.0) g/dL Lipase (8-78) U/L Urine Color Yellow Urine Appearance Cloudy Urine pH 8.0 (5.0-9.0) Ur Specific [place] 1.025 (1.005-1.025) Urine Protein Negative (Neg-Trace) mg/dL Urine Glucose (UA) Negative (Negative) mg/dL Urine Ketones Negative (Negative) mg/dL Urine Blood Negative (Negative) Urine Nitrite Negative (Negative) Ur Leukocyte Esterase Negative (Negative) Urine Test NEGATIVE (NEGATIVE) COVID-19 (CARMEN) (Negative) COVID-19 Clin Com <JOHNY Mccarty - Last Filed: 03/09/22 15:21> Discharge Plan Discharge Clinical Impression: Acute flank pain <Kate Garibay NP - Last Filed: 03/09/22 12:38> Patient Disposition: Home, Self-Care <Kate Garibay NP - Last Filed: 03/09/22 12:38> Instructions: Flank Pain (ED) <Kate Garibay NP - Last Filed: 03/09/22 12:38> Additional Instructions: Follow up with your primary care provider. Return to the emergency department immediately if your symptoms worsen or if you develop any dizziness, shortness of breath, difficulty breathing, chest pain, blurry vision, loss of vision, nausea, vomiting, abdominal pain, fever, chills, back pain, or any other complaints. <Kate Garibay NP - Last Filed: 03/09/22 12:38> Prescriptions: No Action fluticasone propionate [Flonase Allergy Relief] 50 mcg/actuation spray,suspension 1 spray intranasal DAILY Qty: 16 6RF Rx Instructions: administer into each nostril escitalopram oxalate 20 mg tablet 20 mg PO DAILY Qty: 90 3RF buspirone 5 mg tablet 5 mg PO BID Qty: 180 3RF (DME) CPAP Machine/Device Device See Rx Instructions .Route Qty: 1 0RF Rx Instructions: autoPAP 6-16 cm PRESSURE, CPAP and supplies dicyclomine 20 mg tablet 20 mg PO TID PRN (Reason: abdominal discomfort) Qty: 20 0RF ondansetron 4 mg tablet,disintegrating 4 mg PO Q6H PRN (Reason: nausea and vomiting) Qty: 10 0RF multivitamin Tablet 1 tab PO DAILY up4 Probiotics Women's 5 billion cell- 250 mg capsule PO <Kate Garibay NP - Last Filed: 03/09/22 12:38> Referrals: Tracy Nevarez MD [Primary Care Provider] - <Kate Garibay NP - Last Filed: 03/09/22 12:38> Stand Alone Forms: Work/School Release <Kate Garibay NP - Last Filed: 03/09/22 12:38> Print Language: Telugu <Kate Garibay NP - Last Filed: 03/09/22 12:38>
[2022-03-09 12:35] VITALS: BP 147/98; PULSE 77; RESP 18; TEMP 36.8; O2SAT 97; BMI 45.7
[2022-03-09 13:23] LABS: MANUAL DIFF FLAG NO
[2022-03-09 13:28] LABS: Basophils Percent Auto 0.2 % (0-2); Eosinophils Absolute Auto 0.2 X10*3/uL (0.0-0.4); Eosinophils Percent Auto 2.5 % (0-4); Hematocrit 37.9 % (37.0-47.0); Hemoglobin 12.8 g/dl (12.0-16.0); Imm Gran Abs Auto 0.04 X10*3/uL (0.00-0.03); Imm Gran Pct Auto 0.5 % (0.0-0.4); Lymphocytes Absolute Auto 2.5 X10*3/uL (1.2-4.9); Lymphocytes Percent Auto 29.3 % (20-40); Mean Corpuscular HGB Conc 33.8 g/dl (31.0-35.0); Mean Corpuscular Hemoglobin 29.2 pg (27.0-33.0); Mean Corpuscular Volume 86.5 fL (80.0-98.0); Mean Platelet Volume 8.2 fL (9.4-12.3); Monocytes Absolute Auto 0.6 X10*3/uL (0.1-1.2); Monocytes Percent Auto 7.3 % (2-11); Neutrophils Absolute Auto 5.1 x10*3/uL (2.0-8.3); Neutrophils Percent Auto 60.2 % (45-73); Platelet Count 261 X10*3/uL (160-400); Red Blood Count 4.38 X10*6/uL (4.20-5.50); White Blood Count 8.5 X10*3/uL (4.8-10.8)
[2022-03-09 13:39] LABS: COVID-19 Test Negative (Negative); IDNOW Serial# 16C4AD1C
[2022-03-09 13:41] LABS: Alanine Aminotransferase 17 U/L (0-31); Albumin Level 4.2 g/dL (3.5-5.0); Alkaline Phosphatase 60 U/L (39-117); Anion Gap 10 (12-20); Aspartate Amino Transferase 15 U/L (5-31); Bilirubin Direct < 0.2 mg/dL (0.0-0.5); Bilirubin Total 0.3 mg/dL (0.0-1.0); Blood Urea Nitrogen 11 mg/dL (9-16); Calcium 9.4 mg/dL (8.4-10.2); Carbon Dioxide 28 mmol/L (22-29); Chloride 104 mmol/L (96-108); Creatinine Clr Calc Pharmacy 141.8; Estimated Glomerular Filt Rate > 60; Glucose Random 115 mg/dL (60-115); Lipase 13 U/L (8-78); Sodium 138 mmol/L (135-145); Total Protein 6.7 g/dL (6.5-8.0)
[2022-03-09] MEDS: Acetaminophen 325 MG TABLET 975 MG PO (14:16)
[2022-03-09 15:01] LABS: Appearance Urine Cloudy; Color Urine Yellow; Glucose Urine UA Negative (Negative); Leukocyte Esterase Urine Negative (Negative); Nitrite Urine Negative (Negative); Specific Gravity - Urine 1.025 (1.005-1.025); Urine Blood Negative (Negative); Urine Ketones Negative (Negative); Urine Protein Negative (Neg-Trace)
[2022-03-09 15:02] LABS: UPreg QC Valid YES; Urine Pregnancy NEGATIVE (NEGATIVE)
[2022-03-09] MEDS: Ketorolac Tromethamine 15 MG/ML VIAL IM (15:03)
== END 2022-03-09 15:22 | disposition home or self-care (01) ==
PROVIDERS: Nurse Practitioner Family; Emergency Provider Emergency Medicine; PCP Internal Medicine
DX: R10.9 Unspecified abdominal pain (principal); Z20.822 Contact with and (suspected) exposure to COVID-19
CPT/HCPCS: 36415; 80048; 80076; 81003; 81025; 83690; 85025; 87635; 96372; 99283; 99284; J1885

== ENCOUNTER 2024-11-16 05:18 | Emergency (ER) | payer BC, SELFPAY ==
--- OUTSIDE RECORDS SUMMARY | 2024-08-30 05:00 | XMS_ITS ---
Author Organization [facility] Address [address] [facility] [address] [place] [id number] Care Team Providers Care Breaker Off Name Role Phone Jozef Gonzales MD Primary Care Provider Oral Berkowitz Jr, Low Uribe [phone] REASON FOR VISIT gerd Encounters Encounter Location Date Provider Diagnosis [facility] [address] [place] [address] [place] [id number] 08/30/2024 Low Berkowitz Jr Plan Of Treatment Next Appt Details Provider Name:Low sánchez Jr, 12/04/2024 11:20:00 AM, [address] [place] [address], Suite [facility], [place], [address], Progress Notes * BRIAN BLACK FDOB: [birth year] (44 yo F)Acc No.[id number]:08/30/2024 Progress Notes Patient: BRIAN ALVAREZ Provider: Nicole Berkowitz MD :1980 A ge:44 Y S ex:Female Date:08/30/2024 Address:[address] [address] [id number] Pcp:Jozef Gonzales MD Subjective: * Chief Complaints: * 1 . Gerd. * Medical History: Objective: * Vitals: Assessment: Plan: * Treatment: * * The named appointment provid er may or may not be the originator of this progress note, and it is not deemed complete until electronically signed by the appointment provider. Sign off status: Pending * Provider: Nicole Berkowitz MD Date: 0 08/30/2024 Generated for Margot kessler/Nicho/Gianfranco on: 0 11/16/2024 06:17 AM EDT
--- NOTE | ~2024-11-16 | CT_ITS ---
CLINICAL HISTORY: LLQ pain CT abdomen and pelvis with contrast Comparison: None provided Findings: No consolidation or effusion. The gallbladder and solid organs are within normal limits. There is moderate left hydroureteronephrosis with periureteral edema secondary to a 3.8 mm distal ureteral calculus No bowel obstruction, pneumoperitoneum, or pneumatosis. There are diverticula in the descending and sigmoid colon without imaging evidence of diverticulitis. Pelvic contents unremarkable. Normal appendix. No acute fracture. IMPRESSION: Moderate left hydroureteronephrosis secondary to a distal ureteral 3.8 mm calculus. This document has been electronically signed by: Go Abebe MD on 11/16/2024 07:57:13
[2024-11-16 05:20] VITALS: BP 125/66; PULSE 73; RESP 30; O2SAT 98; BMI 44.6
--- NOTE | 2024-11-16 05:23 | ECG_ITS ---
Test Reason : ABD PAIN Blood Pressure : */* mmHG Vent. Rate : 60 BPM Atrial Rate : 60 BPM P-R Int : 122 ms QRS Dur : 84 ms QT Int : 410 ms P-R-T Axes : -13 45 49 degrees QTcB Int : 410 ms Normal sinus rhythm with sinus arrhythmia Normal ECG When compared with ECG of 03-Apr-2014 19:28, No significant change was found Referred By: Elizabeth Harris Electronically Signed By: ABENA LIN MD
[2024-11-16 05:42] LABS: MANUAL DIFF FLAG NO
[2024-11-16 05:43] LABS: Hematocrit 37.4 % (37.0-47.0); Hemoglobin 13.3 g/dl (12.0-16.0); Imm Gran Abs Auto 0.03 X10*3/uL (0.00-0.03); Imm Gran Pct Auto 0.3 % (0.0-0.4); Lymphocytes Absolute Auto 2.7 X10*3/uL (1.2-4.9); Mean Corpuscular HGB Conc 35.6 g/dl (31.0-35.0); Mean Corpuscular Hemoglobin 30.0 pg (27.0-33.0); Mean Corpuscular Volume 84.2 fL (80.0-98.0); NRBC Abs Auto 0.000 X10*3/uL (0.0-0.012); NRBC Pct Auto 0.0 /100WBC (0.0-0.2); Platelet Count 299 X10*3/uL (160-400); Red Blood Count 4.44 X10*6/uL (4.20-5.50); White Blood Count 11.2 X10*3/uL (4.8-10.8)
[2024-11-16 05:49] VITALS: RESP 20
--- NOTE | 2024-11-16 05:49 | ED_ITS ---
HPI - Abdominal Pain General Chief Complaint: Abdominal Pain Stated Complaint: left abdominal pain +vomiting Time Seen by Provider: 11/16/24 05:24 Source: patient and family Mode of arrival: ambulatory Limitations: no limitations History of Present Illness ED Provider: Dr. Elizabeth Harris HPI narrative: Patient comes to the emergency room complaining of severe left lower quadrant pain. Started a proximally 2 hours ago, very sudden. Patient complaining of nausea vomiting, no diarrhea. Patient states that last time when she went to sleep, she was doing well Related Data Home Medications ?Medication ?Instructions ?Recorded ?Confirmed L.acid,gasseri,plant,rham-B.animalis-cran cap PO 10/0901/23/22 5 billion cell-250mg capsule (up4 Probiotics Women's) multivitamin 1 tab PO DAILY 10/09/2012/28 Previous Rx's ?Medication ?Instructions ?Recorded fluticasone propionate 50 1 spray intranasal DAILY #16 grams 09/03/20 mcg/actuation nasal spray,suspension (Flonase Allergy Relief) ondansetron 4 mg disintegrating 4 mg PO Q6H PRN nausea and 10/03/20 tablet vomiting #10 tabs dicyclomine 20 mg tablet 20 mg PO TID PRN abdominal 0 10/05/20 discomfort #20 tabs escitalopram oxalate 20 mg tablet 20 mg PO DAILY #90 t abs 12/10/21 buspirone 5 mg tablet 5 mg PO BID #180 tabs CPAP (CPAP Machine/Device) #1 ea 03/05/22 ibuprofen 600 mg tablet 600 mg PO Q8H PRN pain #14 t abs 11/16/24 oxycodone 5 mg tablet 5 mg PO Q8H PRN pain #7 tabs 11/16/24 Allergies Allergy/AdvReac Type Severity Reaction Status Date / Time haloperidol (HALOPERIDOL) Allergy Unknown INVOLUNTARY Verified 11/16/24 05:21 SPASMS penicillin V Allergy Unknown Shakiness Verified 11/16/24 05:21 Penicillins (PENICILLINS) Allergy Unknown HIVES Verified 11/16/24 05:21 SEASONAL ALLERGIES Allergy Unknown RUNNY Uncoded 11/16/24 05:21 NOSE, ITCHY EYES, SNEEZING Review of Systems Review of Systems Constitutional : No Weight loss, No Fever, No Chills, No Night Sweats, No Fatigue, No Malaise ENT/Mouth : No Hearing loss, No Ear Pain, No Nasal Congestion, No Sinus Pain, No Hoarseness, No sore throat, No Rhinorrhea, No Swallowing Difficulty Eyes: No Eye Pain, No Swelling, No Redness, No Foreign Body, No Discharge, No Vision Changes Cardiovascular : No Chest Pain, No SOB, No Dyspnea on Exertion, No Orthopnea, No Edema, No Palpitations Respiratory : No Cough, No Sputum, No Wheezing, No Smoke Exposure, No Dyspnea Gastrointestinal : Complaining of nausea and vomiting, no diarrhea, complaining of left lower quadrant pain, constant, nonradiating Genitourinary : no irregular bleeding, No Dysuria, No Urinary Frequency, No Hematuria, No Urinary Incontinence, No Urgency, No Flank Pain, No Urinary Flow Changes, No Hesitancy Musculoskeletal : No joint pain, No Myalgias, No Joint Swelling Skin : No Skin Lesions, No rash Neuro : No Weakness, No Numbness, No Paresthesias, No Loss of Consciousness, No Dizziness, No Headache Psych : No Anxiety/Panic, No Depression, No SI/HI/AH/VH, No Social Issues, Heme/Lymph: No Bruising, No Bleeding,No Lymphadenopathy Endocrine : No Polyuria, No Polydipsia, No Temperature Intolerance PMFSH Past Medical History Medical History Anxiety Chronic lower back pain Diverticulitis IBS (irritable bowel syndrome) Surgical History H/O colonoscopy Family History Family History Father No problems noted. Mother Hypertension Sister Mental health disorder Social History Social History Housing: House Alcohol intake: unknown Patient Tobacco Use Status: Never used Tobacco e-Cigarette/Vaping Use: Never Used Second Hand Smoke Exposure: No Use of substances other than those prescribed or required for medical reasons: Yes Substance Use Type: Marijuana Advance Directives: No Advance Directives Information Provided: Yes Patient : No service: No Current occupational status: employed Cognitive needs: No Hearing needs: No Vision needs: Yes Physical Exam ED Exam Exam: Appearance: Alert. Oriented X3. Actively vomiting Eyes: Pupils equal, round and reactive to light. ENT: Pharynx normal. Neck: Normal inspection. Neck supple. No lymph nodes noted. No crepitus CVS: Normal heart rate and rhythm. Pulses normal. Normal S1 and S2 Respiratory: No respiratory distress. Breath sounds normal. No Wheezing. No rales Abdomen: Soft , tenderness to palpation in the lower quadrant, no rebound or guarding, Skin: Skin warm and dry. Normal skin color. Normal skin turgor. Extremities: No lower extremity edema. No Lacerations. No Rash Neuro: Oriented X 3. No motor deficit. No sensory deficit. Moving all extremities. No slurred speech. CN 2 through 12 grossly intact Psych: Very anxious Vital Signs: Vital Signs - 24 hr 11/16/24 05:20 11/16/24 05:49 11/16/24 08:53 Pulse Rate 73 63 Respiratory Rate 30 H 20 18 Blood Pressure 125/66 116/57 L Pulse Oximetry 98 95 Oxygen Delivery Method Room Air Room Air 11/16/24 09:41 Pulse Rate 80 Respiratory Rate 18 Blood Pressure 103/47 L Pulse Oximetry 94 Oxygen Delivery Method Room Air BMI result Body Mass Index 44.6 Course Course Course Narrative: All of patient's labs and imaging pending Patient receiving IV fluids, Zofran and morphine Reevaluation(s) Reevaluation #1: DR. Rivero's progress note: I assumed care for this patient from Dr. Lucia to check the CAT scan, 3.8 left distal ureteric obstructive stone. Patient under better pain management, will discharge home to follow-up with urologist, instructed to drink fluids, pain medication, NSAIDs. Time: 10:30 Medical Decision Making Medical Decision Making [facility] Narrative: My interpretation of labs: Patient's white blood cell count slightly elevated at 11.2, no other acute abnormalities in hematology, chemistry within normal limits, normal LFTs, hCG negative CT scan pending Sign-out given to my colleague Dr. Rivero Lab Data [facility] Lab Attestation statement: I reviewed the patient's lab results. 11/16/24 05:38 11/16/24 05:38 Labs: Lab Results 11/16/24 11/16/24 Range/Units 05:38 08:25 WBC 11.2 H (4.8-10.8) X10*3/uL RBC 4.44 (4.20-5.50) X10*6/uL Hgb 13.3 (12.0-16.0) g/dl Hct 37.4 (37.0-47.0) % MCV 84.2 (80.0-98.0) fL MCH 30.0 (27.0-33.0) pg MCHC 35.6 H (31.0-35.0) g/dl RDW 12.1 (11.0-16.0) % Plt Count 299 (160-400) X10*3/uL MPV 8.1 L (9.4-12.3) fL Immature Gran % (Auto) 0.3 (0.0-0.4) % Neut % (Auto) 65.8 (45-73) % Lymph % (Auto) 24.5 (20-40) % [place] % (Auto) 8.5 (2-11) % Eos % (Auto) 0.7 (0-4) % Baso % (Auto) 0.2 (0-2) % Lymph # (Auto) 2.7 (1.2-4.9) X10*3/uL [place] # (Auto) 1.0 (0.1-1.2) X10*3/uL Eos # (Auto) 0.1 (0.0-0.4) X10*3/uL Baso # (Auto) 0.0 (0.0-0.2) X10*3/uL Abs Immat Gran (auto) 0.03 (0.00-0.03) X10*3/uL Absolute Neuts (auto) 7.4 (2.0-8.3) x10*3/uL Absolute Nucleated RBC 0.000 (0.0-0.012) X10*3/uL Nucleated RBC % (auto) 0.0 (0.0-0.2) /100WBC Sodium 140 (135-145) mmol/L Potassium 3.7 (3.3-5.1) mmol/L Chloride 105 (96-108) mmol/L Carbon Dioxide 22 (22-29) mmol/L Anion Gap 17 (12-20) BUN 12 (9-16) mg/dL Creatinine 0.93 (0.5-1.4) mg/dL Estim Creat Clear Calc 98.4 Estimated GFR > 60 Random Glucose 126 H (60-115) mg/dL Calcium 9.7 (8.4-10.2) mg/dL Magnesium 1.9 (1.6-2.6) mg/dL Total Bilirubin 0.3 (0.0-1.0) mg/dL Direct Bilirubin 0.1 (0.0-0.5) mg/dL AST 20 (5-31) U/L ALT 15 (0-31) U/L Alkaline Phosphatase 56 (39-117) U/L Total Protein 7.1 (6.5-8.0) g/dL Albumin 4.5 (3.5-5.0) g/dL Lipase 21 (8-78) U/L Beta HCG, Quant < 2 mIU/mL Urine Color Yellow Urine Appearance Clear Urine pH 7.5 (5.0-9.0) Ur Specific [place] >= 1.030 H (1.005-1.025) Urine Protein Trace (Neg-Trace) mg/dL Urine Glucose (UA) Negative (Negative) mg/dL Urine Ketones 15 (Negative) mg/dL Urine Blood Small (1+) H (Negative) Urine Nitrite Negative (Negative) Ur Leukocyte Esterase Negative (Negative) Urine RBC 11-20 H (0-2) /HPF Urine WBC 6-10 H (0-5) /HPF Ur Squamous Epith Cells >20 (0-2) /HPF Urine Bacteria 4+ (None Seen) Hyaline Casts 0-2 (0-2) /LPF Urine Opiates Screen POSITIVE H (Not Detect) Ur Buprenorphine Scrn Not Detected (Not Detect) ng/mL Ur Oxycodone Screen Not Detected (Not Detect) ng/mL Urine Methadone Screen Not Detected (Not Detect) ng/mL Urine Fentanyl Screen Not Detected (Not Detect) Ur Barbiturates Screen Not Detected (Not Detect) Ur Phencyclidine Scrn Not Detected (Not Detect) Ur Amphetamines Screen Not Detected (Not Detect) U Benzodiazepines Scrn Not Detected (Not Detect) Urine Cocaine Screen Not Detected (Not Detect) U Marijuana (THC) Screen POSITIVE H (Not Detect) Ethyl Alcohol < 10 mg/dL Independent Interpretation I performed an independent interpretation of an: CT Scan Radiology Impression Discussion of test interpretation with radiology: I have reviewed the radiologist's reading. Radiologist Impression: The gallbladder and solid organs are within normal limits. There is moderate left hydroureteronephrosis with periureteral edema secondary to a 3.8 mm distal ureteral calculus No bowel obstruction, pneumoperitoneum, or pneumatosis. There are diverticula in the descending and sigmoid colon without imaging evidence of diverticulitis. Pelvic contents unremarkable. Normal appendix. No acute fracture. IMPRESSION: Moderate left hydroureteronephrosis secondary to a distal ureteral 3.8 mm calculus Medications Administered Discontinued Medications Generic Name Dose Route Start Last Admin Trade Name Freq PRN Reason Stop Dose Admin Hydromorphone HCl 2 mg 11/16/24 08:29 11/16/24 08:49 Hydromorphone Hcl 2 Mg/Ml Vial IVPUSH 11/16/24 08:30 2 mg ONCE ONE Administration Protocol Sodium Chloride 1,000 mls @ 999 mls/hr 11/16/24 05:31 11/16/24 06:35 Ns IVCONT 11/16/24 06:31 Infused .Q1H1M ONE Infusion Lactated Ringer's 1,000 mls @ 999 mls/hr 11/16/24 08:45 11/16/24 08:50 Lr IV 11/16/24 09:45 999 mls/hr .Q1H1M RAMIN Administration Iohexol 85 ml 11/16/24 06:34 11/16/24 06:35 Iohexol 350 Mg/Ml 100 Ml Infus..Btl IV 11/16/24 06:35 85 ml ONCE ONE Administration Ketorolac Tromethamine 30 mg 11/16/24 06:36 11/16/24 06:39 Ketorolac Tromethamine 30 Mg/Ml Vial IVPUSH 11/16/24 06:37 30 mg ONCE ONE Administration Morphine Sulfate 4 mg 11/16/24 05:31 11/16/24 05:49 Morphine Sulfate 4 Mg/Ml Cartridge IVPUSH 11/16/24 05:32 4 mg ONCE ONE Administration Protocol Ondansetron HCl 4 mg 11/16/24 05:31 11/16/24 05:48 Ondansetron Hcl 4 Mg/2 Ml Vial IVPUSH 11/16/24 05:32 4 mg ONCE ONE Administration Ondansetron HCl 4 mg 11/16/24 08:21 11/16/24 08:27 Ondansetron Hcl 4 Mg/2 Ml Vial IVPUSH 11/16/24 08:22 4 mg ONCE ONE Administration Critical Care Time Critical Care Time Critical Care Time: Yes Total Critical Care Time: 35 Attestation: I have personally provided critical care time. Time includes review of lab data, radiology results, discussion with consultants, and monitoring for potential decompensation. Intervention performed as documented. Discharge Plan Discharge Clinical Impression: Renal colic on left side Patient Disposition: Home, Self-Care Prescriptions: New oxycodone 5 mg tablet 5 mg PO Q8H PRN (Reason: pain) Qty: 7 0RF Rx Instructions: Partial Fill upon patient request. ibuprofen 600 mg tablet 600 mg PO Q8H PRN (Reason: pain) Qty: 14 0RF No Action fluticasone propionate [Flonase Allergy Relief] 50 mcg/actuation spray,suspension 1 spray intranasal DAILY Qty: 16 6RF Rx Instructions: administer into each nostril escitalopram oxalate 20 mg tablet 20 mg PO DAILY Qty: 90 3RF buspirone 5 mg tablet 5 mg PO BID Qty: 180 3RF (DME) CPAP Machine/Device Device See Rx Instructions .Route Qty: 1 0RF Rx Instructions: autoPAP 6-16 cm PRESSURE, CPAP and supplies dicyclomine 20 mg tablet 20 mg PO TID PRN (Reason: abdominal discomfort) Qty: 20 0RF ondansetron 4 mg tablet,disintegrating 4 mg PO Q6H PRN (Reason: nausea and vomiting) Qty: 10 0RF multivitamin Tablet 1 tab PO DAILY up4 Probiotics Women's 5 billion cell- 250 mg capsule PO Referrals: Tammy Galan MD [Physician, Urology] Print Language: Ukrainian
[2024-11-16 06:05] LABS: Alanine Aminotransferase 15 U/L (0-31); Albumin Level 4.5 g/dL (3.5-5.0); Alkaline Phosphatase 56 U/L (39-117); Anion Gap 17 (12-20); Aspartate Amino Transferase 20 U/L (5-31); Blood Urea Nitrogen 12 mg/dL (9-16); Calcium 9.7 mg/dL (8.4-10.2); Carbon Dioxide 22 mmol/L (22-29); Chloride 105 mmol/L (96-108); Creatinine Clr Calc Pharmacy 98.4; Estimated Glomerular Filt Rate > 60; Lipase 21 U/L (8-78); Magnesium 1.9 mg/dL (1.6-2.6); Potassium 3.7 mmol/L (3.3-5.1); Sodium 140 mmol/L (135-145); Total Protein 7.1 g/dL (6.5-8.0)
--- OUTSIDE RECORDS SUMMARY | 2024-11-16 06:18 | XMS_ITS | Clinical Summary ---
Author Organization [facility] Address [address] [place] [phone] Phone Care Team Providers Care Cert Pharmacy Tech Name Role Phone Tracy Nevarez MD Primary Care Provider [phone] Allergies Active Allergy Reactions Criticality Noted Date Comments Haloperidol 06/04/2021 Penicillins 06/04/2021 Medications morphine (MSIR) 15 MG tablet Take 1 tablet (15 mg total) by mouth every 4 (four) hours as needed for pain (specific location in comments). Partial fill ok 10 tablet 2 Active ondansetron (ZOFRAN-ODT) 4 MG disintegrating tablet Take 1 tablet (4 mg total) by mouth every 8 (eight) hours as needed. 20 tablet 2 Active Social History Tobacco Use Types Packs/Day Years Used Date Smoking Tobacco: Never Smokeless Tobacco: Never Alcohol Use Standard Drinks/Week Comments Not Currently 0 (1 standard drink = 0.6 oz pur e alcohol) Education Answer Date Recorded Are you interested in more education? Not on james e 07/25/2022 Are you concerned about learning? Not on file 07/25/2022 No 07/25/2022 No 07/25/2022 Digital Access Answer Date Recorded No 08/25/2022 No 08/25/2022 Reliable internet access at home? Not on file 08/25/2022 Device with a working camera? Not on file Comments Unknown Sex and Gender Information Value Date Recorded Sex Assigned at Not on file Legal Sex Female 8:51 AM EST Gender Identity Not on file Sexual Orientation Not on file Last Filed Vital Signs Vital Sign Reading Time Taken Comments Blood Pressure 134/77 06/04/2021 3:31 PM EST Pulse 57 06/04/2021 2:12 PM EST Temperature 36.3 C (97.3 F) 06/04/2021 3:01 PM EST Respiratory Rate 16 06/04/2021 3:31 PM EST Oxygen Saturation 99% 06/04/2021 3:31 PM EST Inhaled Oxygen Concentration - - Weight 124.7 kg (275 lb) 06/04/2021 9:26 AM EST Height - - Body Mass Index - - Plan of Treatment Not on file Medical Devices Not on file [place] [address] [place] [address] [place] [address] [place] [address] HMO POS [facility] Care Teams Cert Pharmacy Tech Relationship Specialty Start Date End Date Tracy Nevarez MD [address] [place] [address] PCP - General Internal Medicine 06/04/21 Additional Source Comments The information contained in this document represents components of the legal health record. It is not the complete legal health record.[facility]
[2024-11-16] MEDS: iohexoL 350 MG/ML 100 ML INFUS..BTL 85 ML IV (06:35)
[2024-11-16 08:38] LABS: Appearance Urine Clear; Glucose Urine UA Negative (Negative); PH 7.5 (5.0-9.0); Specific Gravity - Urine >= 1.030 (1.005-1.025); UMIC TRIGGER UACC YES
[2024-11-16 08:42] LABS: UACC Culture Trigger YES
[2024-11-16 08:46] LABS: Cannabinoid Screen Urine POSITIVE (Not Detect)
[2024-11-16] MEDS: Lactated Ringers 1,000 ML 999 ML IV (08:50)
[2024-11-16 08:53] VITALS: BP 116/57; PULSE 63; RESP 18; O2SAT 95
[2024-11-16 09:41] VITALS: BP 103/47; PULSE 80; RESP 18; O2SAT 94
[2024-11-16 11:00] VITALS: BP 100/55; PULSE 60; RESP 14; O2SAT 96
[2024-11-16 11:12] VITALS: BP 100/55; PULSE 60; RESP 14; TEMP 36.5; O2SAT 96
== END 2024-11-16 11:15 | disposition home or self-care (01) ==
PROVIDERS: Emergency Provider Emergency Medicine
DX: N23 Unspecified renal colic (principal); R11.2 Nausea with vomiting, unspecified
CPT/HCPCS: 36415; 74177; 80048; 80076; 80307; 81001; 83690; 83735; 84702; 85025; 87086; 93005; 96361; 96374; 96375; 96376; 99285; J1171; J1885; J2270; J2405; J7120; Q9967

== ENCOUNTER → 2024-11-16 05:23 | Outpatient (BNV) | payer BC, SELFPAY | PROVIDERS: Emergency Provider Emergency Medicine; Visit Provider Internal Medicine Cardiovascular Disease | DX: R10.9 Unspecified abdominal pain (principal) | CPT/HCPCS: 93010 ==

== ENCOUNTER → 2024-11-16 05:31 | Outpatient (BNV) | payer BC, SELFPAY | PROVIDERS: Emergency Provider Emergency Medicine; Visit Provider Specialist | DX: N13.2 Hydronephrosis with renal and ureteral calculous obstruction (principal) | CPT/HCPCS: 74177 ==

== ENCOUNTER 2024-11-22 14:11 | Outpatient (REF) | payer BC, SELFPAY | END 2024-11-22 14:12 | disposition home or self-care (01) | LOC: HO.LAB 14:11 | PROVIDERS: PCP Internal Medicine; Visit Provider Urology | DX: N39.0 Urinary tract infection, site not specified (principal); N20.0 Calculus of kidney; A49.9 Bacterial infection, unspecified | CPT/HCPCS: 81003; 87086 ==

== ENCOUNTER 2024-11-22 14:11 | Outpatient (AMB) | payer BC, SELFPAY ==
--- OUTSIDE RECORDS SUMMARY | 2024-08-30 05:00 | XMS_ITS ---
Author Organization [facility] Address [address] [facility] [address] [place] [phone] Care Team Providers Care Vice President Name Role Phone Jozef Gonzales MD Primary Care Provider Oral Berkowitz Jr, Low Uribe [phone] REASON FOR VISIT gerd Encounters Encounter Location Date Provider Diagnosis [facility] [address] [place] [address] [place] [phone] 08/30/2024 Low Berkowitz Jr Plan Of Treatment Next Appt Details Provider Name:Low sánchez Jr, 12/04/2024 11:20:00 AM, [address] [place] [address], Suite [facility], [place], [address], Progress Notes * BRIAN BLACK FDOB: [birth year] (44 yo F)Acc No.[id number]:08/30/2024 Progress Notes Patient: BRIAN ALVAREZ Provider: Nicole Berkowitz MD :1980 A ge:44 Y S ex:Female Date:08/30/2024 Address:[address] [address] [id number] Pcp:Jozef Gonzales MD Subjective: [...] 08/30/2024 Generated for Margot kessler/Nicho/Gianfranco on: 0 11/22/2024 03:11 PM EDT
--- NOTE | 2024-11-22 14:16 | A.OFFVIS_ITS ---
Intake Visit Reasons: Kidney stone moderate [place] Intake Note: New Patient is present for kidney stones c/o frequent urination Urology Rx:none Blood Thinners:none Imaging completed: 11/16/2024 (Abd CT) Drivability Technician Required: No Accompanied by: Self / Same As Patient Allergies haloperidol (HALOPERIDOL) Allergy (Unknown, Verified 11/22/24 14:17) INVOLUNTARY SPASMS penicillin V Allergy (Unknown, Verified 11/22/24 14:17) Shakiness Penicillins (PENICILLINS) Allergy (Unknown, Verified 11/22/24 14:17) HIVES SEASONAL ALLERGIES Allergy (Unknown, Uncoded 11/16/24 05:21) RUNNY NOSE, ITCHY EYES, SNEEZING HPI Comments Details: Sandra is a pleasant female. She is a patient of Dr. Gonzales They are seen for the following urologic conditions - nephrolithiasis plus UTI Printed imaging Discussed results Still with left side flank symptoms Suspicious for stone that has not passed Recommend intervention with retrograde, ureteroscopy and laser lithotripsy as needed Nephrolithiasis Sandra presents for - initial evaluation for nephrolithiasis, Initial presentation through emergency room with imaging Presenting symptoms included left flank pain with associated nausea, urgency frequency Imaging - 11/20 There is moderate left hydroureteronephrosis with periureteral edema secondary to a 3.8 mm distal ureteral calculus Laboratory investigations - creatinine 0.9, calcium 9.7 Stone composition - unknown 24 hour urine evaluation - none on file Interventions - none Current therapeutic plan - stone procedure [facility] Medical History Anxiety Chronic lower back pain Diverticulitis IBS (irritable bowel syndrome) Surgical History H/O colonoscopy Family History Father No problems noted. Mother Hypertension Sister Mental health disorder Social History Housing: House Alcohol intake: unknown Patient Tobacco Use Status: Never used Tobacco e-Cigarette/Vaping Use: Never Used Second Hand Smoke Exposure: No Substance Use Type: Marijuana service: No Current occupational status: employed Cognitive needs: No Hearing needs: No Vision needs: Yes Review of Systems Const Denies chills and Denies fever(s) Card Reports no additional complaints and Denies syncope Resp Denies cough GI Denies abdominal pain and Denies heartburn Reports as per HPI and Denies change in libido Neuro Denies syncope Psych Denies change in libido Endo Denies change in libido Physical Exam Const General: cooperative, healthy appearing, comfortable and no acute distress Orientation/consciousness: patient oriented x3 HEENT Face and sinus: Yes normal facial exam Mouth: moist mucous membranes Neck Neck: Yes normal visual inspection, Yes full ROM and Yes trachea midline Chest Chest palpation & inspection: normal inspection of the chest Resp Effort & Inspection: normal respiratory effort, able to speak in complete sentences and no respiratory distress GI Inspection: Yes normal to inspection Back/Spine/Pelvis Cervical Spine: normal cervical lordosis Thoracic/Lumbar Spine: thoracic and lumbar spine normal to inspection Skin General skin exam: no rashes or lesions noted Neuro General: patient oriented x3, gait normal, tone normal and moves all extremities Extrem General: Yes normal to inspection and Yes capillary refill normal Results AMB Urinalysis, Automated UA Leukoctes 500 Britany/uL Last Edit by CRICKET Louis on 11/22/24 14:55 UA Nitrite Negative Last Edit by CRICKET Louis on 11/22/24 14:55 UA Urobilinogen 0.2 mg/dL Last Edit by CRICKET Louis on 11/22/24 14:5 5 UA Protein 30 mg/dL Last Edit by CRICKET Louis on 11/22/24 14:55 UA pH 6.0 Last Edit by CRICKET Louis on 11/22/24 14:55 UA Blood 25 Nolan/uL Last Edit by CRICKET Louis on 11/22/24 14:55 UA Specific [place] 1.020 Last Edit by CRICKET Louis on 11/22/24 14: 55 UA Ketone Positive Last Edit by CRICKET Louis on 11/22/24 14:55 UA Bilirubin 0 mg/dL Last Edit by CRICKET Louis on 11/22/24 14:55 UA Glucose 0 mg/dL Last Edit by CRICKET Louis on 11/22/24 14:55 Results Reviewed Results Reviewed: Laboratory Last Values Urine pH (Auto) 6.0 11/22/24 14:53 Specific [place] (Auto) 1.020 11/22/24 14:53 Urine Protein (Auto) 30 mg/dL 11/22/24 14:53 Glucose (UA)(Auto) 0 mg/dL 11/22/24 14:53 Urine Ketones (Auto) Positive 11/22/24 14:53 Urine Blood (Auto) 25 Nolan/uL 11/22/24 14:53 Urine Nitrite (Auto) Negative 11/22/24 14:53 Urine Bilirubin (Auto) 0 mg/dL 11/22/24 14:53 Urine Urobilinogen (Auto) 0.2 mg/dL 11/22/24 14:53 Leukocyte Esterase (Auto) 500 Britany/uL 11/22/24 14:53 Assessment & Plan Assessment & Plan (1) Complicated urinary tract infection: Code(s): N39.0 - Urinary tract infection, site not specified Category: Medical (2) Nephrolithiasis: Code(s): N20.0 - Calculus of kidney Category: Medical Plan Ureteroscopy We discussed the nature of the decision and reasonable alternatives for performing ureteroscopy. Options such as medical therapy were discussed. Interventions include chemical dissolution, ESWL, ureteroscopy with laser lit hotripsy and stent placement, PCNL. The relative uncertainties and benefits related to each alternate procedure were adequately discussed. General surgical risks including, but not limited to - pain, bleeding, infection, myocardial infarction, pulmonary embolus, deep vein thrombosis and cerebrovascular accident which may result in further hospitalization were discussed. Full disclosure of the procedure as well as all major risks, benefits and complications were discussed including but not limited to damage to the urethra, bladder and kidney infection, damage to the ureter, stent migration or malposition, scarring to the renal pelvis, remnant stone fragments, subsequent stone passage with need for secondary procedures. The overall secondary procedure rate is approximately 10-15%. The overall clearance rate is approximately 90-95%. Success of the procedure in the short-term does not necessarily guarantee that long-term success will be maintained. Suitable follow up will need to be maintained. The patient showed understanding of discussion and wishes to proceed with - cystoscopy, retrograde, ureteroscopy, possible lithotripsy/stone basketing and stent on the left side Orders: Orders AMB Urinalysis Automated Today Z13.9 - Encounter for screening, unspecified Urine Culture Today A49.9 - Bacterial infection, unspecified, N39.0 - Urinary tract infection, site not specified Medications: New sulfamethoxazole-trimethoprim 800-160 mg (Bactrim DS) 1 tab PO BID 10 tabs 0RF 5 days N39.0 - Urinary tract infection, site not specified Patient Instructions: This note is constructed using voice recognition software. While every effort has been made to ensure accuracy medical transcription editor errors may have been included. Imaging studies, laboratory and physical exam results were discussed and reviewed in detail. No major barriers to patient understanding were identified. An opportunity to ask questions regarding the treatment plan was provided. All questions were answered. The patient expressed understanding and agreement with the above treatment plan. The patient is aware they should contact our office by phone for worsening of their current condition or the appearance of new urologic symptoms. Compliance is encouraged with any medications and followup testing that is ordered. It is a privilege to participate in the urologic care of your patient. If you have any questions or concerns regarding treatment for the above conditions, or other urologic issues, please do not hesitate to contact me. The office telephone contact is [phone]. Sincerely, Dr Nicolas Benjamin MD, [facility] - Urology Compassionate Specialist Care for the Genitourinary System Coding Level of Care Code New Pt Level 4 (09697) Diagnoses Complicated urinary tract infection N39.0 Nephrolithiasis N20.0
--- OUTSIDE RECORDS SUMMARY | 2024-11-22 15:12 | XMS_ITS | Patient Health Record ---
Author Organization [facility] Address [address] [place] [address] Care Team Providers Care Practice Consultant Name Role Phone Jozef Gonzales MD Primary Care Provider Low Caballero Jr Unavailable Allergies Allergen (clinical drug ingredient) Drug/Non Drug Allergy documented on EMR Reaction Allergy Type Onset Date Status Penicillin Unknown Drug Allergy Active haloperidol Haloperidol Lactate twitching Drug Allergy Active Reason For Referral Referring Provider First Name Jozef Referring Provider Last Name Janet Referring Provider Speciality Internal M edicine Referred Organization [facility] Referred Provider Low Berkowitz Jr Referred Address [address],[place], [place],[address], Referred Provider Specialty Gastroentero logy General Notes Iza Fletcher 2024 11:29:16 AM >requested an [facility] blue referral for visit with Dr. Berkowitz on 08-30-[address] Gonzales's office [phone] Referral Priority Routine Medications Medication SIG (Take, Route, Frequency, Duration) Notes Start Date End Date Status Omeprazole 20 MG 1 capsule Orally Onc e a day/prn 12/23/2016 Active Venlafaxine HCl ER 75 MG Oral for 30 Active Zofran ODT 4 MG 1 tablet on the tong ue and allow to dissolve as needed Orally every 4 hrs 12/16/2017 Not-Taking busPIRone HCl 5 MG 1 tablet Orally Twic e a day Active Probiotic Active Multivitamin Active oxyCODONE HCl 5 MG TK 1 T PO Q 6 H PRF SEVERE PAIN Oral for 3 Not-Takin g Calcium & Vit D3 Bone Health - as directed Orally Active Immunizations Vaccine Route Administration Date Status Comme nts Influenza Unknown 11/27/2018 Administered Influenza Unknown 12/28/2019 Administered Influenza Unknown 01/19/2023 Administered Problems Problem Type SNOMED Code ICD Code Onset Dates Problem Status W/U Status Risk Notes Problem 71538476 Epigastric pain (R10.13) Active confirmed Problem 5170496 Diverticulitis o f large intestine without perforation or abscess without bleeding (K57.32) Active confirmed Problem 417313014 Gastro-esophagea l reflux disease without esophagitis (K21.9) Active confirmed Problem 57179546 Irritable bowel syndrome without diarrhea (K58.9) Active confirmed Problem 670254032 Fatty liver (K76.0) Active confirmed Problem 59606044 Nausea and vomiting, intractability of vomiting not specified, unspecified vomiting type (R11.2) Active confirmed Encounters Encounter Location Date Provider Diagnosis [facility] [address] [place] [address] 08/23/2024 Low Berkowitz Jr Plan Of Treatment Future Test Test Name Order Date UPPER GI ENDOSCOPY 05/09/2014 COLONOSCOPY 05/09/2014 Next Appt Details Provider Name:Low sánchez Jr, 12/04/2024 11:20:00 AM, [address] [place] [address], [address], [place], [address], Insurance Providers Payer Name Payer Address Payer Phone Subscriber Number Group Number Insured Name Patient Relationship to Insured Coverage Start Date Coverage End Date [facility] PROFESSIONAL CLAIMS [address] [place] [address] [id number] BRIAN BLACK Self - patient is the insured Medical (General) History Medical History History ICD Code irritable bowel syndrome migraine headaches with transient visual loss in 2012 diverticulitis, uncomplicate d, 2015. Colonoscopy 06/20/14, mild sigmoid diverticulosis and hyperplastic polyp, regular screening protocol or average risk individuals esophageal reflux, upper endoscopy 06/10, no Abraham's or H. pylori. Surgical History Surgery Date(Month/Year)
--- OUTSIDE RECORDS SUMMARY | 2024-11-22 15:12 | XMS_ITS | Clinical Summary ---
Author Organization [facility] Address [address] [place] [address] Phone Care Team Providers Care Citrix Engineer Name Role Phone Tracy Nevarez MD Primary Care Provider [phone] Allergies Active Allergy Reactions Criticality Noted Date [...] file Medical Devices Not on file [place] [address] [place] [address] [place] [place] [address] [place] [address] HMO POS [facility] HMO POS [facility] Care Teams Citrix Engineer Relationship Specialty Start Date End Date Tracy Nevarez MD [address] [place] [address] PCP - General Internal Medicine 06/04/21 Additional Source Comments The information contained in this document represents components of the legal health record. It is not the complete legal health record.[facility]
--- OUTSIDE RECORDS SUMMARY | 2024-11-22 15:12 | XMS_ITS | Encounter Summary ---
Author Organization [facility] Address [address] [facility] [address] [place] [address] Phone Care Team Providers Care Green Chainer Name Role Phone Tracy Nevarez MD Primary Care Provider [phone] Encounter Details Date Type Department Care Team (Late st Contact Info) Description 06/04/2021 Procedure Pass [facility], Ct Scan - [address] [address] Social History Tobacco Use Types Packs/Day Years Used Date Smoking Tobacco: Never Smokeless Tobacco: Never Alcohol Use Standard Drinks/Week Comments Not Currently 0 (1 standard drink = 0.6 oz pur e alcohol) Comments Unknown Sex and Gender Information Value Date Recorded Sex Assigned at Not on file Legal Sex Female 8:51 AM EST Gender Identity Not on file Sexual Orientation Not on file documented as of this encounter Functional Status * Calculated C-SSRS Risk Score (Lifetime/Recent) Answer Date of Assessment Author No Risk Indicated 06/04/2021 9:28 AM Balbina Mullen RN * [place] Suicide Severity Rating Scale (Screener/Recent Self-Report) Question Answer Date of Assessment Author 1. Wish to be (Past 1 Month) No 022 9:28 AM Peg Mullen, LYLE 2. Non-Specific Active Suici brandon Thoughts (Past 1 Month) No 06/04/2021 9:28 AM Peg Mullen , LYLE 6. Suicidal Behavior (Lifetime) No 9:28 AM Peg Mullen, LYLE documented as of this encounter Plan of Treatment Not on file documented as of this encounter Visit Diagnoses Not on filedocumented in this encounter Care Teams Green Chainer Relationship Specialty Start Date End Date Tracy Nevarez MD [facility] [place] [address] PCP - General Internal Medicine 06/04/21 documented as of this encounter Additional Source Comments The information contained in this document represents components of the legal health record. It is not the complete legal health record.[facility]
== END 2024-11-22 15:05 | disposition home or self-care (01) ==
LOC: HO.HUSH 14:12
PROVIDERS: PCP Internal Medicine; Visit Provider Urology
DX: N39.0 Urinary tract infection, site not specified (principal); N20.0 Calculus of kidney; Z13.9 Encounter for screening, unspecified
CPT/HCPCS: 99204

== ENCOUNTER 2024-11-24 11:18 | Outpatient (REF) | payer BC, SELFPAY ==
--- OUTSIDE RECORDS SUMMARY | 2024-08-30 05:00 | XMS_ITS ---
Author Organization [facility] Address 10 [facility] [address] [place] [phone] Care Team Providers Care Press Breaker Name Role Phone Jozef Gonzales MD Primary Care Provider Oral Berkowitz Jr, Low Uribe REASON FOR VISIT gerd Encounters Encounter Location Date Provider Diagnosis [facility] [address] [place] [address] [place] [phone] 08/30/2024 Low Berkowitz Jr Plan Of Treatment Next Appt Details Provider Name:Low sánchez Jr, 12/04/2024 11:20:00 AM, [address] [place] [address], [address] [facility], [place], [address], Progress Notes * BRIAN BLACK FDOB: [birth year] (44 yo F)Acc No.[id number]:08/30/2024 Progress Notes Patient: BRIAN ALVAREZ Provider: Nicole Berkowitz MD :1980 A ge:44 Y S ex:Female Date:08/30/2024 Address:[address] [address] [id number] Pcp:Jozef Gonzales MD Subjective: [...] 08/30/2024 Generated for Margot kessler/Nicho/Gianfranco on: 0 11/24/2024 12:24 PM EDT
--- OUTSIDE RECORDS SUMMARY | 2024-11-24 12:24 | XMS_ITS | Clinical Summary ---
Author Organization [facility] Address [address] [place] [address] Phone Care Team Providers Care Machine Applicator Cementer Name Role Phone Tracy Nevarez MD Primary Care Provider [phone] Allergies Active Allergy Reactions Criticality Noted Date [...] file Medical Devices Not on file Insurance [address] [address] [address] [place] [address] HMO POS [facility] HMO POS [facility] Care Teams Machine Applicator Cementer Relationship Specialty Start Date End Date Tracy Nevarez MD [address] [facility] [facility] [place] [address] PCP - General Internal Medicine 06/04/21 Additional Source Comments The information contained in this document represents components of the legal health record. It is not the complete legal health record.[facility]
--- OUTSIDE RECORDS SUMMARY | 2024-11-24 12:25 | XMS_ITS | Patient Health Record ---
Author Organization [facility] Address [address] [place] [address] Care Team Providers Care Underground Conduit Installer Name Role Phone Jozef Gonzales MD Primary Care Provider Low Caballero Jr Unavailable Allergies Allergen (clinical drug ingredient) Drug/Non Drug Allergy documented on EMR Reaction Allergy Type Onset Date Status Penicillin Unknown Drug Allergy Active haloperidol Haloperidol Lactate twitching Drug Allergy Active Reason For Referral Referring Provider First Name Jozef Referring Provider Last Name Janet Referring Provider Speciality Internal M edicine Referred Organization [facility] Referred Provider Low Berkowitz Jr Referred Address [address] [facility] [facility] [address] [facility],[place], [place],[address], Referred Provider Specialty Gastroentero logy General Notes Iza Fletcher 2024 11:29:16 AM >requested an [facility] blue referral for visit with Dr. Berkowitz on 08-30-[address] Gonzales's office [phone] Referral Priority Routine Medications Medication SIG (Take, [...] Problem Status W/U Status Risk Notes Problem 95450168 Epigastric pain (R10.13) Active confirmed Problem 9069512 Diverticulitis o f large intestine without perforation or abscess without bleeding (K57.32) Active confirmed Problem 826890167 Gastro-esophagea l reflux disease without esophagitis (K21.9) Active confirmed Problem 98943731 Irritable bowel syndrome without diarrhea (K58.9) Active confirmed Problem 658321556 Fatty liver (K76.0) Active confirmed Problem 85742215 Nausea and vomiting, intractability of vomiting not specified, unspecified vomiting type (R11.2) Active confirmed Encounters Encounter Location Date Provider Diagnosis [facility] [address] [facility] [address] [place] [address] 08/23/2024 Low Berkowitz Jr Plan Of Treatment Future Test Test Name Order Date UPPER GI ENDOSCOPY 05/09/2014 COLONOSCOPY 05/09/2014 Next Appt Details Provider Name:Low sánchez Jr, 12/04/2024 11:20:00 AM, [address] [place] [address], [address], [place], [address], Insurance Providers Payer Name Payer Address Payer Phone Subscriber Number Group Number Insured Name Patient Relationship to Insured Coverage Start Date Coverage End Date [facility] PROFESSIONAL CLAIMS [address] [place] [address] [id number] BRIAN BLACK Self - patient is [...]
--- OUTSIDE RECORDS SUMMARY | 2024-11-24 12:25 | XMS_ITS | Encounter Summary ---
Author Organization [facility] Address [address] [facility] [address] [place] [address] Phone Care Team Providers Care Buildings And Grounds Coordinator Name Role Phone Tracy Nevarez MD Primary Care Provider [phone] Encounter Details Date Type Department Care Team (Late st Contact Info) Description 06/04/2021 Procedure Pass [facility], Ct Scan - [address] [address] Social History Tobacco Use Types Packs/Day Years [...] 06/04/2021 9:28 AM Balbina Mullen RN * [place] Suicide Severity Rating Scale (Screener/Recent Self-Report) Question [...] on filedocumented in this encounter Care Teams Buildings And Grounds Coordinator Relationship Specialty Start Date End Date Tracy Nevarez MD [facility] [place] [address] PCP - General Internal Medicine 06/04/21 documented as of this encounter Additional Source Comments The information contained in this document represents components of the legal health record. It is not the complete legal health record.[facility]
[2024-11-24 13:23] LABS: Anion Gap 13 (12-20); Blood Urea Nitrogen 9 mg/dL (9-16); Calcium 9.1 mg/dL (8.4-10.2); Carbon Dioxide 27 mmol/L (22-29); Chloride 105 mmol/L (96-108); Estimated Glomerular Filt Rate > 60; Potassium 3.7 mmol/L (3.3-5.1); Sodium 141 mmol/L (135-145)
== END 2024-11-24 11:19 | disposition home or self-care (01) ==
LOC: HO.LAB 11:18
PROVIDERS: PCP Internal Medicine; Visit Provider Urology
DX: N20.0 Calculus of kidney (principal); N39.0 Urinary tract infection, site not specified
CPT/HCPCS: 36415; 80048

== ENCOUNTER 2024-12-11 09:45 | Outpatient (REF) | payer BC, SELFPAY ==
--- OUTSIDE RECORDS SUMMARY | 2024-08-30 05:00 | XMS_ITS ---
Author Organization [facility] Address [address] [facility] [address] [place] [phone] Care Team Providers Care Sports Announcer Name Role Phone Jozef Gonzales MD Primary Care Provider Oral Berkowitz Jr, Low Uribe REASON FOR VISIT gerd Encounters Encounter Location Date Provider Diagnosis [facility] [address] [place] [address] [place] [phone] 08/30/2024 Low Berkowitz Jr Plan Of Treatment Next Appt Details Provider Name:Low sánchez Jr, 03/28/2025 11:20:00 AM, [address] [place] [address], Suite [facility], [place], [address], Progress Notes * BRIAN BLACK FDOB: [birth year] (44 yo F)Acc No.[id number]:08/30/2024 Progress Notes Patient: BRIAN ALVAREZ Provider: Nicole Berkowitz MD :1980 A ge:44 Y S ex:Female Date:08/30/2024 Address:[address] [address] [id number] Pcp:Jozef Gonzales MD Subjective: [...] 08/30/2024 Generated for Margot kessler/Nicho/Gianfranco on: 0 12/11/2024 11:58 AM EDT
--- OUTSIDE RECORDS SUMMARY | 2024-12-04 07:20 | XMS_ITS ---
Author Organization [facility] Address [address] [facility] [address] [place] [address] Care Team Providers Care Keno Dealer Name Role Phone Jozef Gonzales MD Primary Care Provider Oral Berkowitz Jr, Low Uribe [phone] REASON FOR VISIT Patient presents today for GERD Encounters Encounter Location Date Provider Diagnosis [facility] [address] [place] [address] 12/04/2024 Low Berkowitz Jr Plan Of Treatment Next Appt Details Provider Name:Low sánchez Jr, 03/28/2025 11:20:00 AM, [address] [place] [address], [address], [place], [address], Progress Notes * BRIAN BLACK FDOB: [birth year] (44 yo F)Acc No.[id number]:12/04/2024 Progress Notes Patient: BRIAN ALVAREZ Provider: Nicole Berkowitz MD :1980 A ge:44 Y S ex:Female Date:12/04/2024 Address:[address] [place] [address] [address] Roger [phone] Pcp:Jozef Gonzales MD Subjective: * Chief Complaints: [...] 0 12/04/2024 Generated for Margot kessler/Nicho/Gianfranco on: 0 12/11/2024 11:58 AM EDT
--- NOTE | ~2024-12-11 | US_ITS ---
EXAMINATION: US KIDNEY BILATERAL HISTORY: N20.0 - Calculus of kidney TECHNIQUE: Real-time grayscale ultrasound imaging of the kidneys was performed and images were reviewed. COMPARISON: Correlation is made with an abdominal ultrasound dated 03/20/[address] of the abdomen with contrast dated 11/16/2024.. FINDINGS: Right kidney: The right kidney measures 11.4 x 4.6 x 5.2 cm. There is suboptimal visualization of the lower pole. Renal parenchymal echotexture and thickness are normal. There are no masses. There is no hydronephrosis or renal calculi. Left Kidney: The left kidney measures 11.9 x 5.0 x 4.6 cm. There is suboptimal visualization of the lower pole. Renal parenchymal echotexture and thickness are normal. There are no masses. There is no hydronephrosis or renal calculi. US/US renal BI IMPRESSION: Unremarkable renal ultrasound. Electronically signed by: Nilton Perera MD 12/11/2024 10:40 AM EDT
--- OUTSIDE RECORDS SUMMARY | 2024-12-11 11:58 | XMS_ITS | Clinical Summary ---
Author Organization [facility] Address [address] [place] [address] Phone Care Team Providers Care Marble Worker Name Role Phone Tracy Nevarez MD Primary Care Provider [phone] Allergies Active Allergy Reactions Criticality Noted Date [...] file Medical Devices Not on file [place] [address] [address] [address] [place] [address] [place] [address] [facility] Care Teams Marble Worker Relationship Specialty Start Date End Date Tracy Nevarez MD [address] [facility] [place] [address] PCP - General Internal Medicine 06/04/21 Additional Source Comments The information contained in this document represents components of the legal health record. It is not the complete legal health record.[facility]
--- OUTSIDE RECORDS SUMMARY | 2024-12-11 11:59 | XMS_ITS | Patient Health Record ---
Author Organization [facility] Address [address] [place] [address] Care Team Providers Care Stamping Machine Operator Name Role Phone Jozef Gonzales MD Primary Care Provider Low Caballero Jr Unavailable Allergies Allergen (clinical drug ingredient) Drug/Non Drug Allergy documented on EMR Reaction Allergy Type Onset Date Status Penicillin Unknown Drug Allergy Active haloperidol Haloperidol Lactate twitching Drug Allergy Active Reason For Referral Referring Provider First Name Jozef Referring Provider Last Name Janet Referring Provider Speciality Internal M edicine Referred Organization [facility] Referred Provider Low Berkowitz Jr Referred Address [address] [facility],[place], [place],[address], Referred Provider Specialty Gastroentero logy General Notes Iza Fletcher 2024 11:29:16 AM >requested an [facility] blue referral for visit with Dr. Berkowitz on 08-30-[address] Gonzales's office [phone] Referral Priority Routine Medications Medication SIG (Take, [...] Problem Status W/U Status Risk Notes Problem 90485961 Epigastric pain (R10.13) Active confirmed Problem 3464970 Diverticulitis o f large intestine without perforation or abscess without bleeding (K57.32) Active confirmed Problem 985906641 Gastro-esophagea l reflux disease without esophagitis (K21.9) Active confirmed Problem 14251032 Irritable bowel syndrome without diarrhea (K58.9) Active confirmed Problem 913354596 Fatty liver (K76.0) Active confirmed Problem 92825692 Nausea and vomiting, intractability of vomiting not specified, unspecified vomiting type (R11.2) Active confirmed Encounters Encounter Location Date Provider Diagnosis [facility] [address] [facility] [address] [place] [address] 08/23/2024 Low Berkowitz Jr Plan Of Treatment Future Test Test Name Order Date UPPER GI ENDOSCOPY 05/09/2014 COLONOSCOPY 05/09/2014 Next Appt Details Provider Name:Low sánchez Jr, 03/28/2025 11:20:00 AM, [address] [place] [address], [address], [place], [address], Insurance Providers Payer Name Payer Address Payer Phone Subscriber Number Group Number Insured Name Patient Relationship to Insured Coverage Start Date Coverage End Date [facility] PROFESSIONAL CLAIMS [address] [place] [address] [id number] 5 BRIAN BLACK Self - patient is [...]
--- OUTSIDE RECORDS SUMMARY | 2024-12-11 11:59 | XMS_ITS | Encounter Summary ---
Author Organization [facility] Address [address] [facility] [address] [place] [address] Phone Care Team Providers Care Gas Appliance Adjuster Name Role Phone Tracy Nevarez MD Primary Care Provider [phone] Encounter Details Date Type Department Care Team (Late st Contact Info) Description 06/04/2021 Procedure Pass [facility], Ct Scan - [address] [address] Social History Tobacco Use Types Packs/Day Years [...] 06/04/2021 9:28 AM Balbina Mullen RN * [place] Suicide Severity Rating Scale (Screener/Recent Self-Report) Question Answer Date of Assessment Author 1. Wish to be (Past 1 Month) No 022 9:28 AM Peg Mullen, LYLE 2. Non-Specific Active Suici brandon Thoughts (Past 1 Month) No 06/04/2021 9:28 AM ePg Mlulen , LYLE 6. Suicidal Behavior (Lifetime) No 9:28 AM Peg Mullen, LYLE documented as of this encounter Plan of Treatment Not on file documented as of this encounter Visit Diagnoses Not on filedocumented in this encounter Care Teams Gas Appliance Adjuster Relationship Specialty Start Date End Date Tracy Nevarez MD [facility] [place] [address] PCP - General Internal Medicine 06/04/21 documented as of this encounter Additional Source Comments The information contained in this document represents components of the legal health record. It is not the complete legal health record.[facility]
== END 2024-12-11 09:46 | disposition home or self-care (01) ==
LOC: HO.US 09:45
PROVIDERS: PCP Internal Medicine; Visit Provider Urology
DX: N20.0 Calculus of kidney (principal)
CPT/HCPCS: 76775

== ENCOUNTER → 2024-12-11 09:48 | Outpatient (BNV) | payer BC, SELFPAY | PROVIDERS: PCP Internal Medicine; Visit Provider Radiology Diagnostic Radiology | DX: N20.0 Calculus of kidney (principal) | CPT/HCPCS: 76775 ==

== ENCOUNTER 2024-12-20 15:11 | Outpatient (AMB) | payer BC, SELFPAY ==
--- OUTSIDE RECORDS SUMMARY | 2024-08-30 05:00 | XMS_ITS ---
Author Organization [facility] Address [address] [facility] [address] [place] [phone] Care Team Providers Care Client Engagement Specialist Name Role Phone Jozef Gonzales MD Primary Care Provider Oral Berkowitz Jr, Low Uribe REASON FOR VISIT gerd Encounters Encounter Location Date Provider Diagnosis [facility] [address] [place] [address] [place] [phone] 08/30/2024 Low Berkowitz Jr Plan Of Treatment Next Appt Details Provider Name:Low sánchez Jr, 03/28/2025 11:20:00 AM, [address] [place] [address], Suite [facility], [place], [address], Progress Notes * BRINA BLACK FDOB: [birth year] (44 yo F)Acc No.[id number]:08/30/2024 Progress Notes Patient: BRIAN ALVAREZ Provider: Nicole Berkowitz MD :1980 A ge:44 Y S ex:Female Date:08/30/2024 Address:[address] [address] [id number] Pcp:Jozef Gonzales MD Subjective: [...] 08/30/2024 Generated for Margot kessler/Nicho/Gianfranco on: 0 12/20/2024 05:38 PM EDT
--- OUTSIDE RECORDS SUMMARY | 2024-12-04 07:20 | XMS_ITS ---
Author Organization [facility] Address [address] [facility] [address] [place] [address] Care Team Providers Care Cake Knocker Name Role Phone Jozef Gonzales MD Primary Care Provider Oral Berkowitz Jr, Low Uribe REASON FOR VISIT Patient presents today for GERD Encounters Encounter Location Date Provider Diagnosis [facility] [address] [place] [address] 12/04/2024 Low Berkowitz Jr Plan Of Treatment Next Appt Details Provider Name:Low sánchez Jr, 03/28/2025 11:20:00 AM, [address] [place] [address], [address], [place], [address], Progress Notes * BRIAN BLACK FDOB: [birth year] (44 yo F)Acc No.[id number]:12/04/2024 Progress Notes Patient: BRIAN ALVAREZ Provider: Nicole Berkowitz MD :1980 A ge:44 Y S ex:Female Date:12/04/2024 Address:[address] [place] [address] [address] [id number] Pcp:Jozef Gonzales MD Subjective: * Chief Complaints: * 1 . Patient presents today for GERD. * Medical History: Objective: * Vitals: Assessment: Plan: * Treatment: * * The named appointment provid er may or may not be the originator of this progress note, and it is not deemed complete until electronically signed by the appointment provider. Sign off status: Pending * Provider: Nicole Berkowitz MD Date: 12/04/2024 Generated for Margot kessler/Nicho/Gianfranco on: 12/20/2024 05:39 PM EDT
--- NOTE | 2024-12-20 15:14 | A.OFFVIS_ITS ---
Intake Visit Reasons: US f/u Intake Note: Patient is present for follow up kidney stones Urology Rx:none Blood Thinners:none Imaging completed: 11/16/2024 (Abd CT) Culinary Internship Required: No Accompanied by: Self / Same As Patient Allergies haloperidol (HALOPERIDOL) Allergy (Unknown, Verified 12/20/24 15:15) INVOLUNTARY SPASMS penicillin V Allergy (Unknown, Verified 12/20/24 15:15) Shakiness Penicillins (PENICILLINS) Allergy (Unknown, Verified 12/20/24 15:15) HIVES SEASONAL ALLERGIES Allergy (Unknown, Uncoded 11/16/24 05:21) RUNNY NOSE, ITCHY EYES, SNEEZING HPI Comments Details: Sandra is a pleasant female. She is a patient of Dr. Gonzales They are seen for the following urologic conditions - nephrolithiasis plus UTI Pain-free Renal ultrasound no evidence of stones, hydronephrosis resolved Described nephrolithiasis diet issues Encourage fluids Start B6 12 month follow-up imaging Nephrolithiasis Sandra presents for - further evaluation for nephrolithiasis, Initial presentation through emergency room with imaging Presenting symptoms included left flank pain with associated nausea, urgency frequency Imaging - 11/20 There is moderate left hydroureteronephrosis with periureteral edema secondary to a 3.8 mm distal ureteral calculus - 12/21 renal ultrasound resolved hydronephrosis Laboratory investigations - creatinine 0.9, calcium 9.7 Stone composition - unknown 24 hour urine evaluation - none on file Interventions - none Current therapeutic plan - stone procedure [facility] Medical History Anxiety Chronic lower back pain Diverticulitis IBS (irritable bowel syndrome) Surgical History H/O colonoscopy Family History Father No problems noted. Mother Hypertension Sister Mental health disorder Social History Housing: House Alcohol intake: unknown Patient Tobacco Use Status: Never used Tobacco e-Cigarette/Vaping Use: Never Used Second Hand Smoke Exposure: No Substance Use Type: Marijuana service: No Current occupational status: employed Cognitive needs: No Hearing needs: No Vision needs: Yes Review of Systems Const Denies chills and Denies fever(s) Card Reports no additional complaints and Denies syncope Resp Denies cough GI Denies abdominal pain and Denies heartburn Reports as per HPI and Denies change in libido Neuro Denies syncope Psych Denies change in libido Endo Denies change in libido Physical Exam Const General: cooperative, healthy appearing, comfortable and no acute distress Orientation/consciousness: patient oriented x3 HEENT Face and sinus: Yes normal facial exam Mouth: moist mucous membranes Neck Neck: Yes normal visual inspection, Yes full ROM and Yes trachea midline Chest Chest palpation & inspection: normal inspection of the chest Resp Effort & Inspection: normal respiratory effort, able to speak in complete sentences and no respiratory distress GI Inspection: Yes normal to inspection Back/Spine/Pelvis Cervical Spine: normal cervical lordosis Thoracic/Lumbar Spine: thoracic and lumbar spine normal to inspection Skin General skin exam: no rashes or lesions noted Neuro General: patient oriented x3, gait normal, tone normal and moves all extremities Extrem General: Yes normal to inspection and Yes capillary refill normal Assessment & Plan Assessment & Plan (1) Nephrolithiasis: Code(s): N20.0 - Calculus of kidney Category: Medical Plan Twelve month follow-up Orders: Orders US renal BI 12 Months N20.0 - Calculus of kidney Medications: New pyridoxine (vitamin B6) 50 mg PO DAILY 90 tabs 1RF 90 days N20.0 - Calculus of kidney Patient Instructions: This note is constructed using voice recognition software. While every effort has been made to ensure accuracy rotary slicing machine operator errors may have been included. Imaging studies, laboratory and physical exam results were discussed and reviewed in detail. No major barriers to patient understanding were identified. An opportunity to ask questions regarding the treatment plan was provided. All questions were answered. The patient expressed understanding and agreement with the above treatment plan. The patient is aware they should contact our office by phone for worsening of their current condition or the appearance of new urologic symptoms. Compliance is encouraged with any medications and followup testing that is ordered. It is a privilege to participate in the urologic care of your patient. If you have any questions or concerns regarding treatment for the above conditions, or other urologic issues, please do not hesitate to contact me. The office telephone contact is [phone]. Sincerely, Dr Nicolas Benjamin MD, [facility] - Urology Compassionate Specialist Care for the Genitourinary System Coding Level of Care Code Est Pt Level 3 (00327) Complex EM visit Add On G2211 Diagnoses Nephrolithiasis N20.0
--- OUTSIDE RECORDS SUMMARY | 2024-12-20 17:38 | XMS_ITS | Clinical Summary ---
Author Organization [facility] Address [address] [place] [address] Phone Care Team Providers Care Investigator Name Role Phone Tracy Nevarez MD Primary Care Provider [phone] Allergies Active Allergy Reactions Criticality Noted Date [...] file Medical Devices Not on [place] [address] [place] [address] [place] [address] [place] [address] HMO POS [facility] Care Teams Investigator Relationship Specialty Start Date End Date Tracy Nevarez MD [address] [place] [address] PCP - General Internal Medicine 06/04/21 Additional Source Comments The information contained in this document represents components of the legal health record. It is not the complete legal health record.[facility]
--- OUTSIDE RECORDS SUMMARY | 2024-12-20 17:39 | XMS_ITS | Encounter Summary ---
Author Organization [facility] Address [address] [facility] [address] [place] [address] Phone Care Team Providers Care Supervisor Solder Making Name Role Phone Tracy Nevarez MD Primary Care Provider [phone] Encounter Details Date Type Department Care Team (Late st Contact Info) Description 06/04/2021 Procedure Pass [facility], Ct Scan - [address] [address] Social History Tobacco Use Types Packs/Day Years [...] 06/04/2021 9:28 AM Balbina Mullen RN * [place] Suicide Severity Rating Scale (Screener/Recent Self-Report) Question [...] on filedocumented in this encounter Care Teams Supervisor Solder Making Relationship Specialty Start Date End Date Tracy Nevarez MD [facility] [place] [address] PCP - General Internal Medicine 06/04/21 documented as of this encounter Additional Source Comments The information contained in this document represents components of the legal health record. It is not the complete legal health record.[facility]
--- OUTSIDE RECORDS SUMMARY | 2024-12-20 17:39 | XMS_ITS | Patient Health Record ---
Author Organization [facility] Address [address] [place] [address] Care Team Providers Care Info Print Press Operator Name Role Phone Jozef Gonzales MD [...] Provider Speciality Internal M edicine Referred Organization [facility] Referred Provider Low Berkowitz Jr Referred Address [address] [facility],[place], [place],[address], Referred Provider Specialty Gastroentero logy General Notes Iza Fletcher 2024 11:29:16 AM >requested an [facility] blue referral for visit with Dr. Berkowitz on 08-30-[address] Gonzales's office [phone] Referral Priority Routine Medications Medication SIG (Take, [...] Problem Status W/U Status Risk Notes Problem 32961370 Epigastric pain (R10.13) Active confirmed Problem 6059269 Diverticulitis o f large intestine without perforation or abscess without bleeding (K57.32) Active confirmed Problem 406195876 Gastro-esophagea l reflux disease without esophagitis (K21.9) Active confirmed Problem 75229861 Irritable bowel syndrome without diarrhea (K58.9) Active confirmed Problem 575409380 Fatty liver (K76.0) Active confirmed Problem 85903323 Nausea and vomiting, intractability of vomiting not specified, unspecified vomiting type (R11.2) Active confirmed Encounters Encounter Location Date Provider Diagnosis [facility] [address] [facility] [address] [place] [address] 08/23/2024 Low Berkowitz Jr Plan Of Treatment Future Test Test Name Order Date UPPER GI ENDOSCOPY 05/09/2014 COLONOSCOPY 05/09/2014 Next Appt Details Provider Name:Low sánchez Jr, 03/28/2025 11:20:00 AM, [address] [place] [address], [address], [place], [address], Insurance Providers Payer Name Payer Address Payer Phone Subscriber Number Group Number Insured Name Patient Relationship to Insured Coverage Start Date Coverage End Date [facility] PROFESSIONAL CLAIMS [address] [place] [address] [id number] BRIAN BLACK Self - patient is [...]
== END 2024-12-20 16:32 | disposition home or self-care (01) ==
LOC: HO.HUSH 15:12
PROVIDERS: PCP Internal Medicine; Visit Provider Urology
DX: N20.0 Calculus of kidney (principal)
CPT/HCPCS: 99213

== ENCOUNTER 2025-01-07 05:00 | Emergency (ER) | payer BC, SELFPAY ==
--- OUTSIDE RECORDS SUMMARY | 2024-08-30 05:00 | XMS_ITS ---
Author Organization [facility] Address [address] [facility] [address] [place] [phone] Care Team Providers Care Rn Wound Care Name Role Phone Jozef Gonzales MD Primary Care Provider Oral Berkowitz Jr, Low Uribe [phone] REASON FOR VISIT gerd Encounters Encounter Location Date Provider Diagnosis [facility] [address] [place] [address] [place] [phone] 08/30/2024 Low Berkowitz Jr Plan Of Treatment Next Appt Details Provider Name:Low sánchez Jr, 03/28/2025 11:20:00 AM, [address] [place] [address], Suite [facility], [place], [address], Progress Notes * BRIAN BLACK FDOB: [birth year] (44 yo F)Acc No.[id number]:08/30/2024 Progress Notes Patient: BRIAN ALVAREZ Provider: Nicole Berkowitz MD :1980 A ge:44 Y S ex:Female Date:08/30/2024 Address:[address] [address] [id number] Pcp:Jozef Gonzales MD Subjective: [...] 0 08/30/2024 Generated for Margot kessler/Nicho/Gianfranco on: 05:22 AM EDT
--- OUTSIDE RECORDS SUMMARY | 2024-12-04 07:20 | XMS_ITS ---
Author Organization [facility] Address [address] [facility] [address] [place] [address] Care Team Providers Care Rn Trauma Name Role Phone Jozef Gonzales MD Primary Care Provider Oral Berkowitz Jr, Low Uribe REASON FOR VISIT Patient presents today for GERD Encounters Encounter Location Date Provider Diagnosis [facility] [address] [place] [address] 12/04/2024 Low Berkowitz Jr Plan Of Treatment Next Appt Details Provider Name:Low sánchez Jr, 03/28/2025 11:20:00 AM, [address] [place] [address], [address], [place], [address], Progress Notes * BRIAN BLACK FDOB: [birth year] (44 yo F)Acc No.[id number]:12/04/2024 Progress Notes Patient: BRIAN ALVAREZ Provider: Nicole Berkowitz MD :1980 A ge:44 Y S ex:Female Date:12/04/2024 Address:[address] [place] [address] [address] Roger [phone] Pcp:Jozef Gonzales MD Subjective: * Chief Complaints: [...] * Provider: Nicole Berkowitz MD Date: 0 12/04/2024 Generated for Margot kessler/Nicho/Gianfranco on: 05:22 AM EDT
[2025-01-07 05:02] VITALS: BP 130/62; PULSE 70; RESP 20; TEMP 36.4; O2SAT 97; BMI 40.3
--- OUTSIDE RECORDS SUMMARY | 2025-01-07 05:22 | XMS_ITS | Encounter Summary ---
Author Organization [facility] Address [address] [facility] [address] [place] [address] Phone Care Team Providers Care Form Setter Helper Name Role Phone Tracy Nevarez MD Primary Care Provider [phone] Encounter Details Date Type Department Care Team (Late st Contact Info) Description 06/04/2021 Procedure Pass [facility], Ct Scan - [address] [address] Social History Tobacco Use Types Packs/Day Years [...] 06/04/2021 9:28 AM Balbina Mullen RN * [place] Suicide Severity Rating Scale (Screener/Recent Self-Report) Question [...] on filedocumented in this encounter Care Teams Form Setter Helper Relationship Specialty Start Date End Date Tracy Nevarez MD [facility] [place] [address] PCP - General Internal Medicine 06/04/21 documented as of this encounter Additional Source Comments The information contained in this document represents components of the legal health record. It is not the complete legal health record.[facility]
--- OUTSIDE RECORDS SUMMARY | 2025-01-07 05:22 | XMS_ITS | Clinical Summary ---
Author Organization [facility] Address [address] [place] [address] Phone Care Team Providers Care Stove Mounter Name Role Phone Tracy Nevarez MD Primary Care Provider [phone] Allergies Active Allergy Reactions Criticality Noted Date [...] file Medical Devices Not on file [place] [address] [address] [place] [address] [place] [address] HMO POS [facility] HMO [facility] Care Teams Stove Mounter Relationship Specialty Start Date End Date Tracy Nevarez MD [address] [place] [address] PCP - General Internal Medicine 06/04/21 Additional Source Comments The information contained in this document represents components of the legal health record. It is not the complete legal health record.[facility]
--- OUTSIDE RECORDS SUMMARY | 2025-01-07 05:22 | XMS_ITS | Patient Health Record ---
Author Organization [facility] Address [address] [place] [address] Care Team Providers Care Boom Boss Name Role Phone Jozef Gonzales MD Primary Care Provider Low Caballero Jr Unavailable Allergies Allergen (clinical drug ingredient) Drug/Non Drug Allergy documented on EMR Reaction Allergy Type Onset Date Status Penicillin Unknown Drug Allergy Active haloperidol Haloperidol Lactate twitching Drug Allergy Active Reason For Referral Referring Provider First Name Jozef Referring Provider Last Name Janet Referring Provider Speciality Internal M edicine Referred Organization [facility] Referred Provider Low Berkowitz Jr Referred Address [address] [facility],[place], [place],[address], Referred Provider Specialty Gastroentero logy General Notes Iza Fletcher 2024 11:29:16 AM >requested an [facility] blue referral for visit with Dr. Berkowitz on 08-30-[address] Gonzales's office [phone] Referral Priority Routine Medications Medication SIG (Take, Route, Frequency, Duration) Notes Start Date End Date Status Omeprazole 20 MG 1 capsule Orally Onc e a day/prn 12/23/2016 Active Venlafaxine HCl ER 75 MG Oral; Duration: 30 Active Zofran ODT 4 MG 1 tablet on the tong ue and allow to dissolve as needed Orally every 4 hrs 12/16/2017 Not-Taking busPIRone HCl 5 MG 1 tablet Orally Twic e a day Active Probiotic Active Multivitamin Active oxyCODONE HCl 5 MG TK 1 T PO Q 6 H PRF SEVERE PAIN Oral; Duration: 3 Not-Taking Calcium & Vit D3 Bone Health - as directed Orally Active Immunizations Vaccine Route Administration Date Status Comme nts Influenza Unknown 11/27/2018 Administered Influenza Unknown 12/28/2019 Administered Influenza Unknown 01/19/2023 Administered Problems Problem Type SNOMED Code ICD Code Onset Dates Problem Status W/U Status Risk Notes Problem Epigastric pain (62961471) Epigastric pain (R10.13) Active confirmed Problem Diverticulitis of colon (244877274) Diverticulitis of large intestine without perforation or abscess without bleeding (K57.32) Active confirmed Problem Gastro-esophageal reflux disease without esophagitis (415111398) Gastro-esophageal reflux disease without esophagitis (K21.9) Active confirmed Problem Irritable bowel syndrome (44198525) Irritable bowel syndrome without diarrhea (K58.9) Active confirmed Problem Fatty liver (173542459) Fatty liver (K76.0) Active confirmed Problem Nausea and vomiting (58839829) Nausea and vomiting, intractability of vomiting not specified, unspecified vomiting type (R11.2) Active confirmed Encounters Encounter Location Date Provider Diagnosis [facility] [address] [facility] [address] [place] [address] 08/23/2024 Low Berkowitz Jr Plan Of Treatment Future Test Test Name Order Date UPPER GI ENDOSCOPY 05/09/2014 COLONOSCOPY 05/09/2014 Next Appt Details Provider Name:Low sánchez Jr, 03/28/2025 11:20:00 AM, [address] [place] [address], [address], [place], [address], Insurance Providers Payer Name Payer Address Payer Phone Subscriber Number Group Number Insured Name Patient Relationship to Insured Coverage Start Date Coverage End Date [facility] [employer] PROFESSIONAL CLAIMS [address] [place] [address] [id number] 5 O'BRIAN CHEN Self - patient is the insured Medical [...]
[2025-01-07 05:31] LABS: MANUAL DIFF FLAG NO
[2025-01-07 05:34] LABS: Hematocrit 40.0 % (37.0-47.0); Hemoglobin 13.6 g/dl (12.0-16.0); Imm Gran Abs Auto 0.02 X10*3/uL (0.00-0.03); Imm Gran Pct Auto 0.2 % (0.0-0.4); Lymphocytes Absolute Auto 1.4 X10*3/uL (1.2-4.9); Mean Corpuscular HGB Conc 34.0 g/dl (31.0-35.0); Mean Corpuscular Hemoglobin 29.4 pg (27.0-33.0); Mean Corpuscular Volume 86.4 fL (80.0-98.0); NRBC Abs Auto 0.000 X10*3/uL (0.0-0.012); NRBC Pct Auto 0.0 /100WBC (0.0-0.2); Platelet Count 334 X10*3/uL (160-400); Red Blood Count 4.63 X10*6/uL (4.20-5.50); White Blood Count 10.3 X10*3/uL (4.8-10.8)
--- NOTE | 2025-01-07 05:43 | PC.NURSE ---
pt a&ox4, respirations even and unlabored. pt reports onset of nausea and vomiting since 5pm with poor po intake. pt reports prior to symptoms she smoked marijuana, which pt states she smokes every day. on arrival,pt wretching and throwing up clear liquid. 20g placed in right hand and medicated per mar
[2025-01-07 05:54] LABS: Alanine Aminotransferase 19 U/L (0-31); Albumin Level 4.7 g/dL (3.5-5.0); Alkaline Phosphatase 51 U/L (39-117); Anion Gap 15 (12-20); Aspartate Amino Transferase 20 U/L (5-31); Blood Urea Nitrogen 12 mg/dL (9-16); Calcium 9.6 mg/dL (8.4-10.2); Carbon Dioxide 24 mmol/L (22-29); Chloride 107 mmol/L (96-108); Creatinine Clr Calc Pharmacy 109.0; Estimated Glomerular Filt Rate > 60; Lipase 16 U/L (8-78); Potassium 3.9 mmol/L (3.3-5.1); Sodium 141 mmol/L (135-145); Total Protein 7.3 g/dL (6.5-8.0)
--- NOTE | 2025-01-07 06:38 | ECG_ITS ---
Test Reason : LEANDRA ARRYTHMIA Blood Pressure : */* mmHG Vent. Rate : 70 BPM Atrial Rate : 70 BPM P-R Int : 114 ms QRS Dur : 76 ms QT Int : 442 ms P-R-T Axes : -2 19 32 degrees QTcB Int : 477 ms Normal sinus rhythm with sinus arrhythmia Low voltage QRS Borderline ECG When compared with ECG of 16-Nov-2024 05:42, QT has lengthened Referred By: Daniela Davis Electronically Signed By: ABENA LIN MD
[2025-01-07] MEDS: diazePAM 10 MG/2 ML CARTRIDGE 2.5 MG IVPUSH (06:45)
[2025-01-07 07:03] VITALS: PULSE 67; RESP 16; O2SAT 97
--- NOTE | 2025-01-07 07:04 | PC.NURSE ---
Assumed care of pt. Pt resting quietly in bed. Per family member this is the first time pt has been able to sleep. Will reassess gi symptoms
--- NOTE | 2025-01-07 07:53 | ED_ITS ---
HPI - Nausea/Vomiting/Diarrhea General Chief complaint: Nausea/Vomiting/Diarrhea Stated complaint: vomiting Time Seen by Provider: 01/07/25 05:31 Source: patient and family Mode of arrival: ambulatory Limitations: no limitations History of Present Illness ED Provider: Dr. Daniela Davis HPI Narrative: 44-year-old female with history of cannabinoid hyperemesis presenting with vomiting after using cannabis tonight. Admits that she did not think that she would have an issue. Describes diffuse abdominal pain similar to previous episodes of diverticulitis. No hematochezia or melena. Denies associated fever, bowel changes, urinary complaints, known sick contacts or travel. Had been feeling well prior to this. No questionable food intake. No recent antibiotic use. Related Data Home Medications ?Medication ?Instructions ?Recorded ?Confirmed L.acid,gasseri,plant,rham-B.animalis-cran cap PO 10/0901/23/22 5 billion cell-250mg capsule (up4 Probiotics Women's) multivitamin 1 tab PO DAILY 10/09/2012/28 bupropion HCl 300 mg 24 hr tablet, 300 mg PO QAM 11/22 extended release buspirone 10 mg tablet 10 mg PO BID 11/22/24 guanfacine 1 mg tablet 1 mg PO BEDTIME 12/20/24 Previous Rx's ?Medication ?Instructions ?Recorded fluticasone propionate 50 1 spray intranasal DAILY #16 grams 09/03/20 mcg/actuation nasal spray,suspension (Flonase Allergy Relief) CPAP (CPAP Machine/Device) #1 ea 03/05/22 ibuprofen 600 mg tablet 600 mg PO Q8H PRN pain #14 t abs 11/16/24 pyridoxine (vitamin B6) 50 mg 50 mg PO DAILY 90 days # 90 tabs 12/20/24 tablet dicyclomine 20 mg tablet 20 mg PO TID #10 tabs ondansetron 4 mg disintegrating 4 mg PO Q8H PRN nausea and 01/07/25 tablet vomiting #10 tabs Allergies Allergy/AdvReac Type Severity Reaction Status Date / Time haloperidol (HALOPERIDOL) Allergy Unknown INVOLUNTARY Verified 01/07/25 05:06 SPASMS penicillin V Allergy Unknown Shakiness Verified 01/07/25 05:06 Penicillins (PENICILLINS) Allergy Unknown HIVES Verified 01/07/25 05:06 SEASONAL ALLERGIES Allergy Unknown RUNNY Uncoded 01/07/25 05:06 NOSE, ITCHY EYES, SNEEZING PMFSH Past Medical History Medical History Anxiety Chronic lower back pain Diverticulitis IBS (irritable bowel syndrome) Surgical History H/O colonoscopy Family History Family History Father No problems noted. Mother Hypertension Sister Mental health disorder Social History Social History Housing: House Alcohol intake: unknown Patient Tobacco Use Status: Never used Tobacco Smoked in Last 30 Days: No e-Cigarette/Vaping Use: Never Used Second Hand Smoke Exposure: No Use of substances other than those prescribed or required for medical reasons: Yes Substance Use Type: Marijuana Advance Directives: No Advance Directives Information Provided: Yes Do you have a plan to hurt others: No Plan Patient : No service: No Current occupational status: employed Cognitive needs: No Hearing needs: No Vision needs: Yes Physical Exam 2 Exam: Exam: GENERAL: Ill-Appearing, appears uncomfortable. SKIN: Normal skin color for ethnicity, warm, dry, no rashes noted. HEENT:? Normocephalic, atraumatic, no stridor, dry mucous membranes, dentition intact, EOMI. NECK: Soft, supple, full ROM, midline structures nontender, no step-offs, no deformities, no lymphadenopathy. CHEST: Heart regular tachycardia, no murmurs, symmetric chest rise and fall. PULMONARY: Clear to auscultation bilaterally, diminished at the bases, no labored breathing, no wheezes/rhales/rhonchi. ABDOMINAL: Soft, nondistended, nontender, positive bowel sounds in all quadrants. : Deferred. MUSCULOSKELETAL: Normal tone, full range of motion, no deformities, no peripheral edema. NEURO: Alert and oriented x3, CN II through XII intact, equal strength and sensation bilateral upper and lower extremities, no focal neurologic deficits.? PSYCHIATRIC: Flat affect, fluid speech, good eye contact and appropriate demeanor. Vital Signs: Vital Signs: Last Vital Signs Temp 97.8 F 01/07/25 08:19 Pulse 48 L 01/07/25 08:19 Resp 12 01/07/25 08:19 BP 140/80 H 01/07/25 08:19 Pulse Ox 99 01/07/25 08:19 O2 Del Method Room Air 01/07/25 08:19 BMI result Body Mass Index 40.3 Medications Administered Discontinued Medications Generic Name Dose Route Start Last Admin Trade Name Makayla PRN Reason Stop Dose Admin Diazepam 2.5 mg 01/07/25 06:38 01/07/25 06:45 Diazepam 10 Mg/2 Ml Cartridge IVPUSH 01/07/25 06:39 2.5 mg STAT STA Administration Diphenhydramine HCl 25 mg 01/07/25 05:31 01/07/25 05:41 Diphenhydramine Hcl 50 Mg/Ml Vial IVPUSH 01/07/25 05:32 25 mg ONCE ONE Administration Droperidol 1.25 mg 01/07/25 05:31 01/07/25 05:41 Droperidol 5 Mg/2 Ml Vial IVPUSH 01/07/25 05:32 1.25 mg ONCE ONE Administration Medical Decision Making Medical Decision Making [facility] Narrative: Patient presents today with a chief complaint of vomiting. Differential diagnosis includes surgical emergency such as obstruction, enteritis, hyperglycemia, acidosis, food or drug ingestion, pancreatitis, CVA, allergic reaction such as anaphylaxis, cannabis hyperemesis syndrome or cyclic vomiting syndrome, among many others.? Patient is not showing signs of acute dehydration or hemodynamic instability.? They are having associated abdominal pain. ? Broad-based work-up was initiated based on above history and physical exam. Clinical picture most consistent with cannabinoid hyperemesis syndrome I discussed this with the patient and her at length. She has improved after fluids, anti emetics and benzodiazepines. She does have a dystonic reaction to haloperidol but was able to tolerate droperidol without issue. Plan for discharge home and outpatient follow-up. Discharged in stable condition. Differential Diagnosis Differential Diagnoses: The differential diagnosis associated with the presentation includes (as above) Admission/Observation Consideration of admission/observation: Escalation of care including admission/observation considered Lab Data [facility] Lab Attestation statement: I reviewed the patient's lab results. 01/07/25 05:16 01/07/25 05:16 Labs: Lab Results 01/07/25 Range/Units 05:16 WBC 10.3 (4.8-10.8) X10*3/uL RBC 4.63 (4.20-5.50) X10*6/uL Hgb 13.6 (12.0-16.0) g/dl Hct 40.0 (37.0-47.0) % MCV 86.4 (80.0-98.0) fL MCH 29.4 (27.0-33.0) pg MCHC 34.0 (31.0-35.0) g/dl RDW 12.2 (11.0-16.0) % Plt Count 334 (160-400) X10*3/uL MPV 8.3 L (9.4-12.3) fL Immature Gran % (Auto) 0.2 (0.0-0.4) % Neut % (Auto) 82.3 H (45-73) % Lymph % (Auto) 13.8 L (20-40) % Nicol[place] % (Auto) 3.4 (2-11) % Eos % (Auto) 0.2 (0-4) % Baso % (Auto) 0.1 (0-2) % Lymph # (Auto) 1.4 (1.2-4.9) X10*3/uL [place] # (Auto) 0.4 (0.1-1.2) X10*3/uL Eos # (Auto) 0.0 (0.0-0.4) X10*3/uL Baso # (Auto) 0.0 (0.0-0.2) X10*3/uL Abs Immat Gran (auto) 0.02 (0.00-0.03) X10*3/uL Absolute Neuts (auto) 8.5 H (2.0-8.3) x10*3/uL Absolute Nucleated RBC 0.000 (0.0-0.012) X10*3/uL Nucleated RBC % (auto) 0.0 (0.0-0.2) /100WBC Sodium 141 (135-145) mmol/L Potassium 3.9 (3.3-5.1) mmol/L Chloride 107 (96-108) mmol/L Carbon Dioxide 24 (22-29) mmol/L Anion Gap 15 (12-20) BUN 12 (9-16) mg/dL Creatinine 0.85 (0.5-1.4) mg/dL Estim Creat Clear Calc 109.0 Estimated GFR > 60 Random Glucose 158 H (60-115) mg/dL Calcium 9.6 (8.4-10.2) mg/dL Total Bilirubin 0.4 (0.0-1.0) mg/dL AST 20 (5-31) U/L ALT 19 (0-31) U/L Alkaline Phosphatase 51 (39-117) U/L Total Protein 7.3 (6.5-8.0) g/dL Albumin 4.7 (3.5-5.0) g/dL Lipase 16 (8-78) U/L Independent Historian Clinical information obtained from an independent historian. History obtained from or confirmed by: Spouse External Record Review External record reviewed: Inpatient record Prescription Management I considered prescription management with: Other (antiemetics) Discharge Plan Discharge Clinical Impression: Cannabinoid hyperemesis syndrome, Acute abdominal pain Patient Disposition: Home, Self-Care Instructions: Cyclic Vomiting Syndrome (ED) Additional Instructions: Your symptoms are consistent with cannabinoid hyperemesis syndrome. The treatment for cannabinoid hyperemesis syndrome is to avoid using cannabis. Continue to force your fluids over the next several days. Drink plenty of water and eat a bland diet. Use Zofran for nausea as needed. Return to the emergency department immediately with any new or worsening symptoms including: Worsening pain despite medication, fevers greater than 100?, vomiting blood, bloody stools, any new symptom that concerns you. Call 911 with any medical emergency. Prescriptions: New dicyclomine 20 mg tablet 20 mg PO TID Qty: 10 0RF ondansetron 4 mg tablet,disintegrating 4 mg PO Q8H PRN (Reason: nausea and vomiting) Qty: 10 0RF No Action fluticasone propionate [Flonase Allergy Relief] 50 mcg/actuation spray,suspension 1 spray intranasal DAILY Qty: 16 6RF Rx Instructions: administer into each nostril (DME) CPAP Machine/Device Device See Rx Instructions .Route Qty: 1 0RF Rx Instructions: autoPAP 6-16 cm PRESSURE, CPAP and supplies ibuprofen 600 mg tablet 600 mg PO Q8H PRN (Reason: pain) Qty: 14 0RF multivitamin Tablet 1 tab PO DAILY up4 Probiotics Women's 5 billion cell- 250 mg capsule PO buspirone 10 mg tablet 10 mg PO BID bupropion HCl 300 mg tablet extended release 24 hr 300 mg PO QAM guanfacine 1 mg tablet 1 mg PO BEDTIME pyridoxine (vitamin B6) 50 mg tablet 50 mg PO DAILY 90 Days Qty: 90 1RF Interventions: ED Discharge Assessment Last Done: 01/07/25 08:19 Discharge Date/Time: 01/07/25 08:24 Print Language: Ukrainian
[2025-01-07 08:04] VITALS: BP 124/83; PULSE 67; RESP 16; TEMP 36.6; O2SAT 97
[2025-01-07 08:15] VITALS: BP 124/83; PULSE 67; RESP 16; TEMP 36.6; O2SAT 97
[2025-01-07 08:19] VITALS: BP 140/80; PULSE 48; RESP 12; TEMP 36.6; O2SAT 99
== END 2025-01-07 08:24 | disposition home or self-care (01) ==
PROVIDERS: Emergency Provider Emergency Medicine; PCP Internal Medicine
DX: R11.16 Cannabis hyperemesis syndrome (principal); R10.9 Unspecified abdominal pain
CPT/HCPCS: 36415; 80053; 83690; 85025; 93005; 96374; 96375; 99284; 99285; J1200; J1790; J3360

== ENCOUNTER → 2025-01-07 06:38 | Outpatient (BNV) | payer BC, SELFPAY | PROVIDERS: Emergency Provider Emergency Medicine; PCP Internal Medicine; Visit Provider Internal Medicine Cardiovascular Disease | DX: I49.9 Cardiac arrhythmia, unspecified (principal) | CPT/HCPCS: 93010 ==